=== PATIENT | male | born 1950 | race Caucasian/White ===

== ENCOUNTER 2016-11-18 17:19 | Observation (INO) | payer MEDICARE ==
--- NOTE | 2016-11-18 17:43 | Emergency Department Record ---
History of Present Illness - General Chief Complaint: Numbness Stated Complaint: FUNNY FEELING IN BOTH ARMS,NECK AND HEAD Time Seen by Provider: 11/18/16 17:34 Source: Patient, Family Mode of Arrival: Ambulatory Limitations: No limitations - History of Present Illness Initial Comments: 66 yo male presents after two episodes today. At 1pm he was at an antique shop and had a 15-20 episode when he felt a heavy sensation come over his arms, neck and back of the head. This was not painful. He was not weak, numb or tingling. He did not have syncope. No chest pain or sweating. He did not loose coordination. The episode quickly passed. Within 15 minutes her was back to feeling 100% normal. At 4pm driving his car the same episode occurred. No weakness, no pain, no speech or vision changes. No history of stroke. Onset/Timin -: Hour(s) Location: Left arm, Right arm History of same: No Place: Outdoors Severity: Moderate Quality: Intermittent Improves With: None Worsens With: None Context: Sudden onset, Other Treatments Prior to Arrival: None - [place] Coma Scale Eye Response: (4) Open spontaneously Motor Response: (6) Obeys commands Verbal Response: (5) Oriented Laura Total: 15 - Symptoms of Stroke Onset of Symptoms Date: 11/18/16 Onset of Symptoms Time: 12:00 - Related Data Allergies/Adverse Reactions: Allergies Allergy/AdvReac Type Severity Reaction Status Date / Time meperidine Allergy Unknown HIVES Verified 11/18/16 17:32 Travel Screening - Travel/Exposure Within Last 30 Days Have you traveled within the last 30 days?: No - Travel/Exposure Within Last Year Have you traveled outside the [place] in the last year?: No - Additonal Travel Details Have you been exposed to anyone with a communicable illness?: No - Travel Symptoms Symptom Screening: None Review of Systems Constitutional: Denies: Chills, Fever, Malaise, Night sweats, Weakness Eyes: Denies: Eye discharge, Eye pain, Photophobia, Vision change ENT: Denies: Congestion, Throat pain Respiratory: Denies: Cough, Dyspnea, Hemoptysis, Stridor, Wheezes Cardiovascular: Denies: Arrhythmia, Chest pain, Dyspnea on exertion, Edema, Palpitations, Syncope Endocrine: Denies: Fatigue, Polydipsia, Polyuria Gastrointestinal: Denies: Abdominal pain, Diarrhea, Nausea, Vomiting Genitourinary: Denies: Dysuria, Frequency, Hematuria, Incontinence, Urgency Musculoskeletal: Denies: Arthralgia, Back pain, Joint swelling, Myalgia, Neck pain Skin: Denies: Bruising, Change in color, Rash Neurological: Reports: Other ([place] heavy). Denies: Abnormal gait, Confusion, Headache, Numbness, Paresthesias, Seizure, Tingling, Tremors, Vertigo, Weakness Psychiatric: Denies: Anxiety Hematological/Lymphatic: Denies: Blood Clots, Easy bleeding, Easy bruising, Swollen glands Past Medical History - SOCIAL HISTORY Smoking Status: Never smoker Alcohol Use: None Drug Use: None - RESPIRATORY Hx Respiratory Disorders: No - CARDIOVASCULAR Hx Cardio Disorders: Yes Hx Hypertension: Yes Hx Irregular Heartbeat: Yes (on occasion) Comment:: enlarged heart - NEURO Hx Neuro Disorders: Yes Hx Dizziness: Yes - GI Hx GI Disorders: Yes Hx Hiatal Hernia: Yes - Hx Genitourinary Disorders: Yes Hx Prostate Problems: Yes - ENDOCRINE Hx Endocrine Disorders: No - MUSCULOSKELETAL Hx Musculoskeletal Disorders: No - PSYCH Hx Psych Problems: Yes Hx Depression: Yes - HEMATOLOGY/ONCOLOGY Hx Hematology/Oncology Disorders: Yes Hx Blood Transfusions: Yes (pt own blood) Hx Blood Transfusion Reaction: No Family Medical History Any Significant Family History?: Yes Hx Cancer: Father, Mother Physical Exam - General General Appearance: Alert, Oriented x3, Cooperative, No acute distress, Other ( Appears calm, relaxed, conversational) Limitations: No limitations - Head Head exam: Atraumatic, Normocephalic, Normal inspection - Eye Eye exam: Normal appearance, PERRL, EOMI. negative: Conjunctival injection, Nystagmus, Periorbital swelling - ENT ENT exam: Normal exam, Mucous membranes moist Ear exam: Normal external inspection Nasal Exam: Normal inspection Mouth exam: Normal external inspection - Neck Neck exam: Normal inspection, Full ROM. negative: Meningismus, Tenderness - Respiratory Respiratory exam: Normal lung sounds bilaterally. negative: Respiratory distress, Rhonchi, Stridor, Wheezes - Cardiovascular Cardiovascular Exam: Regular rate, Normal rhythm, Normal heart sounds Peripheral Pulses: 2+: Radial (R), Radial (L) - GI/Abdominal GI/Abdominal exam: Soft. negative: Tenderness - Rectal Rectal exam: Deferred - exam: Deferred - Extremities Extremities exam: Normal inspection, Full ROM, Normal capillary refill. negative: Pedal edema, Tenderness - Back Back exam: Reports: Normal inspection, Full ROM. Denies: CVA tenderness (R), CVA tenderness (L), Muscle spasm, Paraspinal tenderness, Rash noted, Tenderness , Vertebral tenderness - Neurological Neurological exam: Alert, CN II-XII intact, Normal gait, Oriented X3, Reflexes normal, Other (No PND, normal FTN, normal strength, symmetric). negative: Motor sensory deficit - Psychiatric Psychiatric exam: Normal affect, Normal mood - Skin Skin exam: Dry, Intact, Normal color, Warm Course Vital Signs 11/18/16 17:20 Temperature 99.2 F Pulse Rate 103 H Respiratory 16 Rate Blood Pressure 147/91 Pulse Ox 96 - Reevaluation(s) Reevaluation #1: 11/18/16 17:46 NIH 0 11/18/16 18:00 EKG NSR rate of 96, intervals normal, axis normal, ST no acute changes, early transition. no significant changes 11/08/13. 11/18/16 18:02 Reevaluation #2: orthostatics reviewed 11/18/16 18:27 The labs were reviewed No acute changes on the CBC or CMP The Troponin is normal 11/18/16 18:27 I CHARISSE Castaneda V the PAC for the [facility] He will be an OBS admit, serial enzymes, ekg's, carotid dopplers 11/18/16 19:20 Medical Decision Making - Lab Data Result diagrams: 11/18/16 17:47 11/18/16 17:47 Disposition Disposition: Admit Clinical Impression: Near syncope Disposition: Still a Patient at [facility] Decision to Admit: Admit from ER Decision to Admit Date: 11/18/16 Decision to Admit Time: 19:22 Condition: (2) Stable Forms: Patient Portal Access Time of Disposition: 19:22 Quality - Quality Measures Quality Measures: N/A - Blood Pressure Screening Does Patient Have Any of the Following: No Blood Pressure Classification: Hypertensive Reading Systolic Measurement: 147 Diastolic Measurement: 91 Screening for High Blood Pressure: < Pre-Hypertensive BP, F/U Documented > [ [id number]] Pre-Hypertensive Follow-up Interventions: Referral to alternative/primary care provider.
[2016-11-18 17:57] LABS: HEMATOCRIT 40.7 % (42.0-52.0); HEMOGLOBIN 13.4 gm/dl (14.0-18.0); MEAN CELL VOLUME 91.1 fl (81-97); MEAN CORPUSCULAR HGB CONC 32.9 g/dl (32-36); MEAN PLATELET VOLUME 9.3 fl (7.4-10.4); PLATELET COUNT 237 K/uL (130-400); RED BLOOD COUNT 4.47 M/uL (4.40-5.70); RED CELL DISTRIBUTION WIDTH 13.8 % (11.5-14.5); WHITE BLOOD COUNT W/O DIFF 6.1 K/uL (4.2-12.2)
[2016-11-18 17:59] LABS: MEAN CORPUSCULAR HEMOGLOBIN 29.9 pg (27-33)
[2016-11-18 18:17] LABS: ALB/GLOB RATIO 1.7 (1.1-1.8); ALBUMIN 4.3 g/dL (4.0-5.0); ALKALINE PHOSPHATASE 95 U/L (40-129); ALT/SGPT 21 U/L (<41); AST/SGOT 23 U/L (10.0-50.0); BLOOD UREA NITROGEN 49.9 mg/dL (17.4-49.2); CREATININE 1.2 mg/dL (0.7-1.2); EST GLOMERULAR FILTRATION RATE > 60 mL/min; GLUCOSE,RANDOM 116 mg/dL (74-109); TOTAL PROTEIN 6.9 g/dL (6.6-8.7)
[2016-11-18 18:18] LABS: TROPONIN I < 0.30 ng/mL (0.00-0.300)
[2016-11-18] MEDS: 0.9 % SODIUM CHLORIDE 1000ML 1,000 ML IV PRN (22:47)
--- NOTE | 2016-11-19 07:13 | CT SCAN REPORT ---
EXAM: CT OF THE BRAIN HISTORY: DIZZINESS. TECHNIQUE: CT of the brain without contrast was obtained. Comparison: None. FINDINGS: The globes are intact. Polyps of the maxillary sinuses. No displaced or depressed skull fracture. No intra or extraaxial hemorrhage. CT is limited for evaluation of acute infarct. No CT evidence for large or territorial acute infarct. No mass or midline shift. Mild diffuse atrophy. Minor small vessel ischemic change. IMPRESSION: MILD ATROPHY AND SMALL VESSEL ISCHEMIC CHANGE. NEGATIVE FOR ACUTE INTRACRANIAL ABNORMALITY. JOB NUMBER: [id number] [facility]
[2016-11-19] MEDS: BUPROPION HCL 150 MG TAB.SR.12H PO SCH (10:42)
[2016-11-19] MEDS: 0.9 % SODIUM CHLORIDE 1000ML 1,000 ML IV PRN (10:44)
--- NOTE | 2016-11-19 10:51 | US CAROTID DOPPLER REPORT ---
EXAM: BILATERAL CAROTID DOPPLER ULTRASOUND HISTORY: TRANSIENT WEAKNESS. EXTREMITY NUMBNESS. TECHNIQUE: Kiran scale, color Doppler and duplex Doppler evaluation of the cervical arteries was performed. Comparison: None. FINDINGS: Kiran scale images do not demonstrate focal atherosclerotic plaque within the cervical arteries. 3 Vessel Right Peak Systolic/ End Diastolic Velocities Left Peak Systolic/ End Diastolic Velocities Proximal Common Carotid Artery 95 cm/s/24 cm/s 79 cm/s/14 cm/s Mid Common Carotid Artery 88 cm/s/24 cm/s 56 cm/s/8 cm/s Distal Common Carotid Artery 58 cm/s/21 cm/s 76 cm/s/19 cm/s Proximal Internal Carotid Artery 57 cm/s/10 cm/s 41 cm/s/18 cm/s Mid Internal Carotid Artery 40 cm/s/12 cm/s 52 cm/s/16 cm/s Distal Internal Carotid Artery 56 cm/s/17 cm/s 58 cm/s/27 cm/s Carotid Bulb 39 cm/s/10 cm/s 49 cm/s/8 cm/s Proximal External Carotid Artery 75 cm/s/23 cm/s 64 cm/s/14 cm/s d d d Peak Systolic Velocity Peak Systolic Velocity Vertebral Artery 45 cm/s 49 cm/s Antegrade flow is demonstrated in each vertebral artery. The ICA/CCA ratio on the right is 0.7 while on the left it is 1.0. IMPRESSION: 1. NO EVIDENCE OF PLAQUE WITHIN THE VISUALIZED CERVICAL CAROTID ARTERIES. 2. NO DOPPLER EVIDENCE OF CLINICALLY SIGNIFICANT STENOSIS. JOB NUMBER: [id number] AND [id number] [facility]
--- NOTE | 2016-11-19 12:00 | History & Physical ---
History of Present Illness - Date of Service Date of Service for History & Physical: 11/19/16 - History of Present Illness Admitting Diagnosis: Near syncope, transient weakness globally History of Present Illness: Mr. Cosme is a 66 y/o male who presents after having episodes of generalized feeling of warmth in both arms accompanied with neck pain and headache. The patient was out antique shopping with his girlfriend when his symptoms began and cannot recall any precipitating events that would have brought on his symptoms. While driving home the patient again had another episode and had to pull to the side of the road until symptoms resolved. He denies, fever/chills, vomiting, chest pain, sweating, loss of vision, dizziness, numbness, slurring of speech, motor weakness or loss of consciousness. The patient's girlfriend denies and seizure like activity or symptoms suggestive of stroke. He reports episodes of palpitations some years ago at which time he had his medication adjusted by his PCP but says that he has no cardiac conditions or recent changes in medication dosing. He did however note that he most recently started using Melatonin for sleep disturbance but has not noticed any specific side-effects. On arrival to the ED the patient had a CT head w/o contrast which was not suggestive of any acute intracranial process. ECG showed normal sinus rhythm and troponins were negative with no indication of acute coronary syndrome. Addendum: at approximately 8:50 this am the patient was noted to have another episode of the aforementioned symptoms with spontaneous resolution and no changes on tele monitor. Travel Screening - Travel/Exposure Within Last 30 Days Have you traveled within the last 30 days?: No - Travel/Exposure Within Last Year Have you traveled outside the [place] in the last year?: No - Additonal Travel Details Have you been exposed to anyone with a communicable illness?: No - Travel Symptoms Symptom Screening: None Review of Systems Constitutional: Reports: Other (generalized warmth and nausea ). Denies: Chills , Fever, Malaise, Night sweats, Weakness Eyes: Denies: Eye discharge, Eye pain, Photophobia, Vision change ENT: Denies: Congestion, Throat pain Respiratory: Denies: Cough, Dyspnea, Hemoptysis, Stridor, Wheezes Cardiovascular: Denies: Arrhythmia, Chest pain, Dyspnea on exertion, Edema, Palpitations, Syncope Endocrine: Denies: Fatigue, Polydipsia, Polyuria Gastrointestinal: Denies: Abdominal pain, Diarrhea, Nausea, Vomiting Genitourinary: Denies: Dysuria, Frequency, Hematuria, Incontinence, Urgency Musculoskeletal: Denies: Arthralgia, Back pain, Joint swelling, Myalgia, Neck pain Skin: Denies: Bruising, Change in color, Rash Neurological: Reports: Other ([place] heavy). Denies: Abnormal gait, Confusion, Headache, Numbness, Paresthesias, Seizure, Tingling, Tremors, Vertigo, Weakness Psychiatric: Denies: Anxiety Hematological/Lymphatic: Denies: Blood Clots, Easy bleeding, Easy bruising, Swollen glands Past Medical History - SOCIAL HISTORY Smoking Status: Never smoker Alcohol Use: None Drug Use: None - RESPIRATORY Hx Respiratory Disorders: No - CARDIOVASCULAR Hx Cardio Disorders: Yes Hx Abnormal EKG: No Hx Hypertension: Yes Hx Irregular Heartbeat: Yes (on occasion and takes verapamil ) Comment:: enlarged heart - NEURO Hx Neuro Disorders: No Hx Dizziness: Yes Hx of Migraines: Yes Hx Syncope: No Hx TIA: No - GI Hx GI Disorders: Yes Hx Hiatal Hernia: Yes - Hx Genitourinary Disorders: Yes Hx Prostate Problems: Yes - ENDOCRINE Hx Endocrine Disorders: No - MUSCULOSKELETAL Hx Musculoskeletal Disorders: No Hx Arthritis: Yes (bilateral total knee replacements) - PSYCH Hx Psych Problems: Yes Hx Depression: Yes (on Wellbutrin and Paroxetine) - HEMATOLOGY/ONCOLOGY Hx Hematology/Oncology Disorders: Yes Hx Blood Transfusions: Yes (pt own blood) Hx Blood Transfusion Reaction: No Family Medical History Any Significant Family History?: No H&P Meds/Allergies - Allergies Allergies: Allergies Allergy/AdvReac Type Severity Reaction Status Date / Time meperidine Allergy Unknown HIVES Verified 11/18/16 17:32 - Home Medications Home Medications Medication Instructions Recorded Confirmed Last Taken Aspirin [Aspirin EC] 81 mg PO QHS 11/19/16 11/19/16 Unknown - Active Medications Active Medications: Current Medications Aspirin (Ecotrin (Ec)) 81 mg PO QHS [facility] Bupropion HCl (Wellbutrin Sr) 300 mg PO DAILY [facility] Last Admin: 11/19/16 10:42 Dose: 300 mg Sodium Chloride () 1,000 mls @ 100 mls/hr IV .Q10H PRN PRN Reason: LARGE VOLUME IV Last Admin: 11/19/16 10:44 Dose: 100 mls/hr Physical Exam - Vital Signs Vital Signs: Vital Signs - Last 24 Hrs Temp Pulse Resp BP Pulse Ox 11/19/16 08:45 99.1 F 94 H 18 144/89 97 11/19/16 08:22 18 11/19/16 05:00 98.6 F 73 18 144/91 97 11/18/16 22:40 98.2 F 94 H 20 160/85 97 11/18/16 22:19 16 - General General Appearance: Alert, Oriented x3, Cooperative, No acute distress, Other ( Appears calm, relaxed, conversational) Limitations: No limitations - Head Head exam: Atraumatic, Normocephalic, Normal inspection - Eye Eye exam: Normal appearance, PERRL, EOMI. negative: Conjunctival injection, Nystagmus, Periorbital swelling - ENT ENT exam: Normal exam, Mucous membranes moist Ear exam: Normal external inspection Nasal Exam: Normal inspection Mouth exam: Normal external inspection - Neck Neck exam: Normal inspection, Full ROM. negative: Meningismus, Tenderness - Respiratory Respiratory exam: Normal lung sounds bilaterally. negative: Respiratory distress, Rhonchi, Stridor, Wheezes - Cardiovascular Cardiovascular Exam: Regular rate, Normal rhythm, Normal heart sounds Peripheral Pulses: 2+: Radial (R), Radial (L) - GI/Abdominal GI/Abdominal exam: Soft. negative: Tenderness - Rectal Rectal exam: Deferred - exam: Deferred - Extremities Extremities exam: Normal inspection, Full ROM, Normal capillary refill. negative: Pedal edema, Tenderness - Back Back exam: Reports: Normal inspection, Full ROM. Denies: CVA tenderness (R), CVA tenderness (L), Muscle spasm, Paraspinal tenderness, Rash noted, Tenderness , Vertebral tenderness - Neurological Neurological exam: Alert, CN II-XII intact, Normal gait, Oriented X3, Reflexes normal, Other (No PND, normal FTN, normal strength, symmetric). negative: Motor sensory deficit - Psychiatric Psychiatric exam: Normal affect, Normal mood - Skin Skin exam: Dry, Intact, Normal color, Warm Results - Labs Result Diagrams: 11/18/16 17:47 11/18/16 17:47 Labs Last 24 Hours: Laboratory Results - last 24 hr 11/18/16 11/19/16 23:20 06:45 Troponin I < 0.01 < 0.30 VTE H&P Assessment - Risk for VTE Risk for VTE: No Risk Level: Very Low Risk Assessment Date: 11/19/16 Risk Assessment Time: 13:43 VTE Orders Placed or Will Be Placed: No VTE Reason for No Prophylaxis: Not Indicated Plan - Detailed Diagnosis and Plan (1) Near syncope Plan: - NIH 0 since admission. Possible TIA - workup thus far is unrevealing of any acute cardiac or neurological pathology. CT head w/o contrast is negative for any acute intra-cranial abnormalities and carotid duplex negative for obstruction. ABCD2 score 1, low risk of stroke. - continue telemetry monitoring, cholesterol panel and 2D echo to complete TIA/ stroke workup. - hold BP medications, no anticoagulation indicated for another 24 hours. Cont antiplatelet therapy with ASA 81mg and statin 40mg PO. Current Visit: Yes Status: Acute Base Code: R55 - SYNCOPE AND COLLAPSE (2) Hypertension Plan: - BP on admission 160/85,---> 144/89 today - on Verapamil 180 mg BID, Valasartan/HCTZ - continue holding BP medications for now. Will resume as appropriate. Current Visit: Yes Status: Acute Base Code: I10 - ESSENTIAL (PRIMARY) HYPERTENSION (3) Depression Plan: - patient has a diagnosis of generalized depression and is on Buproprion and Paroxetine. He has described recent stressors with the of a close friend. We have resumed his medications and will consult behavioral health for a discussion if the patient is agreeable. The patient may benefit from therapy and outpatient support upon discharge. Current Visit: Yes Status: Chronic Base Code: F32.9 - MAJOR DEPRESSIVE DISORDER, SINGLE EPISODE, UNSPECIFIED (4) Hypercholesteremia Plan: ordering cholesterol panel and continuing Simvastatin 40mg QHS. Current Visit: Yes Status: Acute Base Code: E78.00 - PURE HYPERCHOLESTEROLEMIA, UNSPECIFIED (5) Psoriasis Plan: stable - on methotrexate 2.5mg QD, folic acid and Vit D supplementation. Current Visit: Yes Status: Acute Base Code: L40.9 - PSORIASIS, UNSPECIFIED (6) Erectile dysfunction Plan: - currently taking Cialis. Current Visit: Yes Status: Acute Base Code: N52.9 - MALE ERECTILE DYSFUNCTION, UNSPECIFIED (7) Full code status Plan: FULL CODE - will discuss resuscitation status and decision making with patient this afternoon. Current Visit: Yes Status: Acute Base Code: Z78.9 - OTHER SPECIFIED HEALTH STATUS - Disposition The patient is stable but we will complete TIA/stroke workup today. Likely d/c tomorrow if workup is negative. to evaluate this afternoon.
[2016-11-19] MEDS ORDERED: ASPIRIN 81 MG TABEC PO SCH (22:00)
[2016-11-20] MEDS: BUPROPION HCL 150 MG TAB.SR.12H PO SCH (09:10)
--- NOTE | 2016-11-20 09:31 | Discharge Summary ---
Providers Discharge Summary Date: 11/20/16 Date of admission: 11/18/16 21:45 Attending physician: ROBERTO ZAVALA Primary care physician: ARNAV MICHEL D.O. Physical Exam - Vital Signs Vital Signs: Vital Signs - Last 24 Hrs Temp Pulse Resp BP Pulse Ox 11/20/16 08:33 16 11/20/16 08:00 98.8 F 74 16 140/90 11/19/16 23:03 98.4 F 67 16 144/94 97 11/19/16 21:00 65 16 11/19/16 16:00 98.6 F 85 18 147/90 97 - General General Appearance: Alert, Oriented x3, Cooperative, No acute distress, Other ( Appears calm, relaxed, conversational) Limitations: No limitations - Head Head exam: Atraumatic, Normocephalic, Normal inspection - Eye Eye exam: Normal appearance, PERRL, EOMI. negative: Conjunctival injection, Nystagmus, Periorbital swelling - ENT ENT exam: Normal exam, Mucous membranes moist Ear exam: Normal external inspection Nasal Exam: Normal inspection Mouth exam: Normal external inspection - Neck Neck exam: Normal inspection, Full ROM. negative: Meningismus, Tenderness - Respiratory Respiratory exam: Normal lung sounds bilaterally. negative: Respiratory distress, Rhonchi, Stridor, Wheezes - Cardiovascular Cardiovascular Exam: Regular rate, Normal rhythm, Normal heart sounds Peripheral Pulses: 2+: Radial (R), Radial (L) - GI/Abdominal GI/Abdominal exam: Soft. negative: Tenderness - Rectal Rectal exam: Deferred - exam: Deferred - Extremities Extremities exam: Normal inspection, Full ROM, Normal capillary refill. negative: Pedal edema, Tenderness - Back Back exam: Reports: Normal inspection, Full ROM. Denies: CVA tenderness (R), CVA tenderness (L), Muscle spasm, Paraspinal tenderness, Rash noted, Tenderness , Vertebral tenderness - Neurological Neurological exam: Alert, CN II-XII intact, Normal gait, Oriented X3, Reflexes normal, Other (No PND, normal FTN, normal strength, symmetric). negative: Motor sensory deficit - Psychiatric Psychiatric exam: Normal affect, Normal mood - Skin Skin exam: Dry, Intact, Normal color, Warm Hospitalization - Hospitalization Admission Diagnosis: Near syncope, transient weakness globally - Problem List/Discharge Diagnosis (1) Near syncope Plan: - NIH 0 since admission. Possible TIA - workup thus far is unrevealing of any acute cardiac or neurological pathology. CT head w/o contrast is negative for any acute intra-cranial abnormalities and carotid duplex negative for obstruction. ABCD2 score 1, low risk of stroke. - continue telemetry monitoring, cholesterol panel and 2D echo to complete TIA/ stroke workup. - hold BP medications, no anticoagulation indicated for another 24 hours. Cont antiplatelet therapy with ASA 81mg and statin 40mg PO. Status: Acute Base Code: R55 - SYNCOPE AND COLLAPSE (2) Hypertension Plan: - BP on admission 160/85,---> 144/89 today - on Verapamil 180 mg BID, Valasartan/HCTZ - continue holding BP medications for now. Will resume as appropriate. Status: Acute Base Code: I10 - ESSENTIAL (PRIMARY) HYPERTENSION (3) Depression Plan: - patient has a diagnosis of generalized depression and is on Buproprion and Paroxetine. He has described recent stressors with the of a close friend. We have resumed his medications and will consult behavioral health for a discussion if the patient is agreeable. The patient may benefit from therapy and outpatient support upon discharge. Status: Chronic Base Code: F32.9 - MAJOR DEPRESSIVE DISORDER, SINGLE EPISODE, UNSPECIFIED (4) Hypercholesteremia Plan: ordering cholesterol panel and continuing Simvastatin 40mg QHS. Status: Acute Base Code: E78.00 - PURE HYPERCHOLESTEROLEMIA, UNSPECIFIED (5) Psoriasis Plan: stable - on methotrexate 2.5mg QD, folic acid and Vit D supplementation. Status: Acute Base Code: L40.9 - PSORIASIS, UNSPECIFIED (6) Erectile dysfunction Plan: - currently taking Cialis. Status: Acute Base Code: N52.9 - MALE ERECTILE DYSFUNCTION, UNSPECIFIED (7) Full code status Status: Acute Base Code: Z78.9 - OTHER SPECIFIED HEALTH STATUS - Hospitalization Course Disposition: Home, Self-Care Hospital Course: 66 y/o male who presented with sensation of generalized warmth and vague symptoms in the upper extremities bilaterally. He did not have any motor or sensory deficits on admission and CT head w/o contrast was not suggestive of any acute cerebral infarct. Other diagnostic studies inclusive of bilateral carotid US and labs did not reveal any abnormalities. No telemetry findings of arrhythmia and ECG showed normal sinus rhythm. He was started on aspirin 81mg, continuous tele monitor and Q12H neurochecks. All antihypertensives were held during admission and the patient remained normotensive. The patient remained stable throughout admission and considering the patient's low ABCD2 score he was discharged home with instruction to return on Thursday for outpatient 2D cardiac echo. He is to follow up with his PCP on Thursday for further review of his medications and he is advised to discontinue any herbal supplements and Melatonin as these may have some effect on his prescribed medications. The patient expresses and understanding of his hospital course and plans upon discharge. Procedures: Imaging and X-Rays 11/19/16 08:00 ARTERIAL DOPPLER CAROTID EDUARDO [US] Stat Cardiology Procedures 11/19/16 14:21 Echocardiogram 2D - Limited ONCE Abnormal Labs: Abnormal Lab Results 11/19/16 Range/Units 06:45 HDL Cholesterol 32 L (40-60) mg/dL Condition at Discharge: (2) Stable Discharge Diagnosis: Pre-syncope VTE Discharge VTE Reason For No Overlap Therapy: Not Indicated Stroke Discharge Plan - Antithrombotic Therapy Reason for Not Ordering Antithrombotic at DC: Not Indicated - Anticoagulation Therapy Reason for Not Ordering Anticoagulation at DC: Not Indicated Discharge Medications - Discharge Medications Home Medications: Ambulatory Orders Methotrexate Sodium [Methotrexate] 17.5 mg PO FR 11/08/13 [Last Taken 1 Day Ago ~11/17/16] Simvastatin 40 mg PO QHS 11/08/13 [Last Taken 1 Day Ago ~11/17/16] Verapamil HCl [Verapamil ER] 180 mg PO BID 11/08/13 [Last Taken 1 Day Ago ~11/17] Valsartan/Hydrochlorothiazide [Diovan Hct 80-12.5 mg Tablet] 1 each PO QHS 02/01 [Last Taken 1 Day Ago ~11/17/16] Bupropion HCl [Bupropion Xl] 300 mg PO DAILY 10/06/14 [Last Taken 1 Day Ago ~01/23] Cyclobenzaprine HCl [Flexeril] 10 mg PO QHS PRN 10/12/15 [Last Taken 1 Day Ago ~ 11/17/16] Hydrocodone/Acetaminophen [Hydrocodon-Acetaminoph 7.5-325] 1 each PO Q6H PRN 07/22 [Last Taken 1 Day Ago ~11/17/16] Aspirin [Aspirin EC] 81 mg PO QHS 11/19/16 [Last Taken Unknown] Discharge Plan - Discharge Instructions Activity at Discharge: Resume Usual Activities As Tolerated Diet at Discharge: Regular Diet Instructions: Near Syncope (DC) Additional Instructions: 2 Activity: As tolerated 2 Diet: Regular 2 2 Follow Up: An echocardiogram is scheduled on 11/21/16, please arrive at 10:30am to [facility] Dr Michel appt is 11/24/16 at 10:30am 2 2 Additional: Return to the closest emergency department with any new or worsening symptoms. Resume home medications as directed. Quality Measures - Quality Measures Quality Measures: Advance Directives, Documentation of Current Medications in Medical Record, Elder Maltreatment Screen and Follow-Up Plan, Screening for High Blood Pressure and F/U Documented - Current Medications Quality Measure: Measure #130: Documentation of Current Medications Documentation of Current Medications: <Current Medications Documented/Reviewed> [G8427] - Blood Pressure Screening Quality Measure: Screening for High Blood Pressure and Follow-Up Documented Does Patient Have Any of the Following: Active Dx of HTN Blood Pressure Classification: Hypertensive Reading Systolic Measurement: 147 Diastolic Measurement: 91 Screening for High Blood Pressure: Patient Exclusion, Hx of HTN [G9744] - Advance Directives Quality Measure: Measure #47: Care Plan Advance Directives Established: No Advance Directives Information Provided To Patient: Already Provided Advance Directives on File: No Living Will: No Power of Kennel Aide: No Advance Care Planning: Not Discussed or Documented [[id number]] - Elder Abuse Suspicion Index Screening: Elder Abuse Suspicion Index Screening Screening Result: Negative result EASI Reference Information: Shaan ECHEVERRIA, Yojana C, Thuy D, Dann Roy.Development and validation of a tool to assist physicians identification of elder abuse: The Elder Abuse Suspicion Index (EASI ). Journal of Elder Abuse and Neglect, 2008; 20 (3): 276-300. - Elder Maltreatment Screen Quality Measures: Elder Maltreatment Screen and Follow-Up Plan Elder Maltreatment Screen: <Negative, No Follow-Up Plan Required> [G8734]
== END 2016-11-20 10:16 | disposition home or self-care (01) ==
LOC: ER 17:19 → MEDSURG 21:45
PROVIDERS: ADMIT Family Medicine; ATTEND Family Medicine
DX: R55 Syncope and collapse (principal); R53.1 Weakness; F32.9 Major depressive disorder, single episode, unspecified; I10 Essential (primary) hypertension; E78.00 Pure hypercholesterolemia, unspecified; L40.9 Psoriasis, unspecified; N52.9 Male erectile dysfunction, unspecified; Z78.9 Other specified health status
CPT/HCPCS: 99285 ×2; 83735; 84484 ×2; 80053; 80061; 85027; 93880; 70450; 93005 ×3; 93010 ×2; G0378 ×3; J3490 ×2; 99217; 99220

== ENCOUNTER 2017-08-27 17:20 | Emergency (ER) | payer MEDICARE ==
[2017-08-27] MEDS ORDERED: RIVAROXABAN 15 MG TABLET PO ONE (18:30)
--- NOTE | 2017-08-27 18:30 | Emergency Department Record ---
History of Present Illness - General Chief complaint: Extremity Problem Stated complaint: LT ARM BLOOD CLOT Time Seen by Provider: 08/27/17 17:40 Source: Patient Mode of Arrival: Ambulatory Limitations: No limitations - History of Present Illness Initial comments: pt sent to ED from us after it was discovered he had a dvt of his lue. pt has no cp and no sob MD Complaint: Extremity pain, Extremity swelling Onset/Timin -: Days(s) Location: Left, Arm History of Same: No Quality: Aching Associated Symptoms: Denies other symptoms - Related Data Previous Rx's Medication Instructions Recorded Rivaroxaban [Xarelto] 15 mg PO BID #20 tablet 08/27/17 Allergies Allergy/AdvReac Type Severity Reaction Status Date / Time meperidine Allergy Unknown HIVES Verified 08/27/17 17:33 Travel Screening - Travel/Exposure Within Last 30 Days Have you traveled within the last 30 days?: No - Travel/Exposure Within Last Year Have you traveled outside the [place] in the last year?: No - Additonal Travel Details Have you been exposed to anyone with a communicable illness?: No - Travel Symptoms Symptom Screening: None Review of Systems Reviewed: No additional complaints except as noted below Constitutional: Reports: As per HPI. Denies: Chills, Fever, Malaise, Night sweats, Weakness, Weight change Eyes: Reports: As per HPI. Denies: Eye discharge, Eye pain, Photophobia, Vision change ENT: Reports: As per HPI. Denies: Congestion, Dental pain, Ear pain, Epistaxis , Hearing loss, Throat pain Respiratory: Reports: As per HPI. Denies: Cough, Dyspnea, Hemoptysis, Stridor, Wheezes Cardiovascular: Reports: As per HPI. Denies: Arrhythmia, Chest pain, Dyspnea on exertion, Edema, Murmurs, Orthopnea, Palpitations, Paroxysmal nocturnal dyspnea, Rheumatic Fever, Syncope Endocrine: Reports: As per HPI. Denies: Fatigue, Heat or cold intolerance, Polydipsia, Polyuria Gastrointestinal: Reports: As per HPI. Denies: Abdominal pain, Constipation, Diarrhea, Hematemesis, Hematochezia, Melena, Nausea, Vomiting Genitourinary: Reports: As per HPI. Denies: Dysuria, Frequency, Hematuria, Incontinence, Retention, Testicular pain, Testicular mass, Urgency Musculoskeletal: Reports: As per HPI. Denies: Arthralgia, Back pain, Gout, Joint swelling, Myalgia, Neck pain Skin: Reports: As per HPI. Denies: Bruising, Change in color, Change in hair/ nails, Lesions, Pruritus, Rash Neurological: Reports: As per HPI. Denies: Abnormal gait, Confusion, Headache, Numbness, Paresthesias, Seizure, Tingling, Tremors, Vertigo, Weakness Psychiatric: Reports: As per HPI. Denies: Anxiety, Auditory hallucinations, Depression, Homicidal thoughts, Suicidal thoughts, Visual hallucinations Hematological/Lymphatic: Reports: As per HPI. Denies: Anemia, Blood Clots, Easy bleeding, Easy bruising, Swollen glands Past Medical History - SOCIAL HISTORY Smoking Status: Never smoker Alcohol Use: None Drug Use: None - RESPIRATORY Hx Respiratory Disorders: No - CARDIOVASCULAR Hx Cardio Disorders: Yes Hx Abnormal EKG: No Hx Hypertension: Yes Hx Irregular Heartbeat: Yes (on occasion and takes verapamil ) Comment:: enlarged heart - NEURO Hx Neuro Disorders: No Hx Dizziness: Yes Hx of Migraines: Yes Hx TIA: No - GI Hx GI Disorders: Yes Hx Hiatal Hernia: Yes - Hx Genitourinary Disorders: Yes Hx Prostate Problems: Yes - ENDOCRINE Hx Endocrine Disorders: No - MUSCULOSKELETAL Hx Musculoskeletal Disorders: No Hx Arthritis: Yes (bilateral total knee replacements) - PSYCH Hx Psych Problems: Yes Hx Depression: Yes (on Wellbutrin and Paroxetine) - HEMATOLOGY/ONCOLOGY Hx Hematology/Oncology Disorders: Yes Hx Blood Transfusions: Yes (pt own blood) Hx Blood Transfusion Reaction: No Family Medical History Any Significant Family History?: Yes Hx Cancer: Father, Mother Physical Exam - General General Appearance: Alert, Oriented x3, Cooperative, Mild distress - Head Head exam: Normal inspection - Eye Eye exam: Normal appearance, PERRL, EOMI Pupils: Normal accommodation - ENT ENT exam: Normal exam, Mucous membranes moist, Normal external ear exam, Normal orophraynx, TM's normal bilaterally Ear exam: Normal external inspection. negative: External canal tenderness Nasal Exam: Normal inspection. negative: Discharge, Sinus tenderness Mouth exam: Normal external inspection, Tongue normal Teeth exam: Normal inspection. negative: Dental caries Throat exam: Normal inspection. negative: Tonsillar erythema, Tonsillar exudate - Neck Neck exam: Normal inspection, Full ROM. negative: Tenderness - Respiratory Respiratory exam: Normal lung sounds bilaterally. negative: Respiratory distress - Cardiovascular Cardiovascular Exam: Regular rate, Normal rhythm, Normal heart sounds - GI/Abdominal GI/Abdominal exam: Soft, Normal bowel sounds. negative: Tenderness - Rectal Rectal exam: Deferred - exam: Deferred - Extremities Extremities exam: Normal inspection, Full ROM, Normal capillary refill. negative: Tenderness - Back Back exam: Reports: Normal inspection, Full ROM. Denies: Muscle spasm, Rash noted, Tenderness - Neurological Neurological exam: Alert, CN II-XII intact, Normal gait, Oriented X3 - Psychiatric Psychiatric exam: Normal affect, Normal mood - Skin Skin exam: Dry, Intact, Normal color, Warm Course Vital Signs 08/27/17 17:25 Temperature 97.9 F Pulse Rate 69 Respiratory 20 Rate Blood Pressure 149/96 Pulse Ox 98 - Reevaluation(s) Reevaluation #1: 08/27/17 18:36 d/w dr schmitz Disposition Disposition: Discharge Clinical Impression: DVT (deep venous thrombosis) Qualifiers: DVT location: upper extremity Affected thrombotic vein of extremity: other upper extremity vein Chronicity: acute Laterality: left Qualified Code(s): I82.622 - Acute embolism and thrombosis of deep veins of left upper extremity Disposition: Home, Self-Care Condition: (1) Good Instructions: Deep Vein Thrombosis Prevention (ED), Rivaroxaban (By mouth) Additional Instructions: follow up with family doctor. return sooner if worse. go to nearest emergency department if you have chest pain, shortness of breath or unusual bleeding Prescriptions: Rivaroxaban [Xarelto] 15 mg PO BID #20 tablet Quality - Quality Measures Quality Measures: N/A - Blood Pressure Screening Does Patient Have Any of the Following: No Blood Pressure Classification: Hypertensive Reading Systolic Measurement: 149 Diastolic Measurement: 96 Screening for High Blood Pressure: < First Hypertensive BP, F/U Documented > [ G8950] First Hypertensive Follow-up Interventions: Follow-up with rescreen GT 1 day and LT 4 weeks.
== END 2017-08-27 19:05 | disposition home or self-care (01) ==
LOC: ER 17:20
DX: I82.622 Acute embolism and thrombosis of deep veins of left upper extremity (principal); I10 Essential (primary) hypertension
CPT/HCPCS: 99283

== ENCOUNTER 2017-10-19 15:20 | Emergency (ER) | payer MEDICARE ==
--- NOTE | 2017-10-19 15:41 | Emergency Department Record ---
History of Present Illness - General Chief complaint: Extremity Problem Stated complaint: KNOT ON RASHID Time Seen by Provider: 10/19/17 15:29 Mode of Arrival: Ambulatory - History of Present Illness Initial comments: accidental injury at home to left rashid. On Xarelto for DVT left arm. Onset/Timin -: Minutes(s) Location: Left, Lower Leg Quality: Aching - Related Data Home Medications Medication Instructions Recorded Confirmed Last Taken Paroxetine HCl [Paxil] 10 mg PO DAILY 10/19/17 10/19/17 1 Day Ago ~10/18/17 Previous Rx's Medication Instructions Recorded Rivaroxaban [Xarelto] 15 mg PO BID #20 tablet 08/27/17 Allergies Allergy/AdvReac Type Severity Reaction Status Date / Time meperidine Allergy Unknown HIVES Verified 10/19/17 15:34 Travel Screening - Travel/Exposure Within Last 30 Days Have you traveled within the last 30 days?: No - Travel/Exposure Within Last Year Have you traveled outside the [place] in the last year?: No - Additonal Travel Details Have you been exposed to anyone with a communicable illness?: No - Travel Symptoms Symptom Screening: None Review of Systems Constitutional: Denies: Chills, Fever Eyes: Denies: Vision change ENT: Denies: Ear pain Respiratory: Denies: Cough Cardiovascular: Denies: Arrhythmia, Chest pain Endocrine: Denies: Fatigue Gastrointestinal: Denies: Abdominal pain Skin: Reports: As per HPI Neurological: Denies: Confusion, Headache, Tingling Psychiatric: Denies: Anxiety Hematological/Lymphatic: Reports: Blood Clots. Denies: Anemia Past Medical History - SOCIAL HISTORY Smoking Status: Never smoker Alcohol Use: None Drug Use: None - RESPIRATORY Hx Respiratory Disorders: No - CARDIOVASCULAR Hx Cardio Disorders: Yes Hx Abnormal EKG: No Hx Deep Vein Thrombosis: Yes (left upper ext.) Hx Hypertension: Yes Hx Irregular Heartbeat: Yes (on occasion and takes verapamil ) Comment:: enlarged heart - NEURO Hx Neuro Disorders: No Hx Dizziness: Yes Hx of Migraines: Yes Hx TIA: No - GI Hx GI Disorders: Yes Hx Hiatal Hernia: Yes - Hx Genitourinary Disorders: Yes Hx Prostate Problems: Yes - ENDOCRINE Hx Endocrine Disorders: No - MUSCULOSKELETAL Hx Musculoskeletal Disorders: No Hx Arthritis: Yes (bilateral total knee replacements) - PSYCH Hx Psych Problems: Yes Hx Depression: Yes (on Wellbutrin and Paroxetine) - HEMATOLOGY/ONCOLOGY Hx Hematology/Oncology Disorders: Yes Hx Blood Transfusions: Yes (pt own blood) Hx Blood Transfusion Reaction: No Family Medical History Any Significant Family History?: Yes Hx Cancer: Father, Mother Physical Exam - General General Appearance: Alert, Oriented x3, Cooperative - Head Head exam: Atraumatic - Eye Eye exam: Normal appearance, PERRL, EOMI - ENT ENT exam: Mucous membranes moist, Normal external ear exam - Neck Neck exam: Normal inspection - Respiratory Respiratory exam: Normal lung sounds bilaterally. negative: Rhonchi - Cardiovascular Cardiovascular Exam: Regular rate, Normal rhythm Peripheral Pulses: 2+: Dorsalis Pedis (R), Dorsalis Pedis (L) - GI/Abdominal GI/Abdominal exam: Soft, Normal bowel sounds. 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 negative: Calf tenderness - Neurological Neurological exam: Alert, Normal gait, Oriented X3 - Psychiatric Psychiatric exam: Normal affect, Normal mood - Skin Skin exam: Abrasion, Pallor Course Vital Signs 10/19/17 15:23 Temperature 98.2 F Pulse Rate 82 Respiratory 17 Rate Blood Pressure 120/85 Pulse Ox 97 - Reevaluation(s) Reevaluation #1: 10/19/17 15:44 Seen for concern of blood thinner. No active bleeding. Disposition Disposition: Discharge Clinical Impression: Abrasion of skin Disposition: Home, Self-Care Condition: (1) Good Instructions: Abrasion (ED) Additional Instructions: ice Quality - Quality Measures Quality Measures: N/A - Blood Pressure Screening Does Patient Have Any of the Following: No Blood Pressure Classification: Pre-Hypertensive BP Reading Systolic Measurement: 120 Diastolic Measurement: 85 Screening for High Blood Pressure: < Pre-Hypertensive BP, F/U Documented > [ G8950] Pre-Hypertensive Follow-up Interventions: Follow-up with rescreen every year.
== END 2017-10-19 16:01 | disposition home or self-care (01) ==
LOC: ER 15:20
DX: S80.812A Abrasion, left lower leg, initial encounter (principal); W22.8XXA Striking against or struck by other objects, initial encounter; Y92.009 Unspecified place in unspecified non-institutional (private) residence as the place of occurrence of the external cause; Z86.718 Personal history of other venous thrombosis and embolism; I10 Essential (primary) hypertension; Z79.01 Long term (current) use of anticoagulants
CPT/HCPCS: 99282

== ENCOUNTER 2017-12-29 14:31 | Emergency (ER) | payer MEDICARE ==
[2017-12-29] MEDS ORDERED: LIDOCAINE (XYLOCAINE) 1% MPF 10MG/ML 5ML VIAL ONE (14:56)
--- NOTE | 2017-12-29 15:26 | Emergency Department Record ---
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 on the 3rd and 4th finger and deeper on the 5th finger Onset/Timin -: Hour(s) Extremity Location: Left: Hand Place: Home Context: Accidental Treatments Prior to Arrival: Bandage - Laura Coma Scale Eye Response: (4) Open spontaneously Motor Response: (6) Obeys commands Verbal Response: (5) Oriented Laura Total: 15 - Related Data Hx Tetanus Toxoid Vaccination: Yes Year of Tetanus Vaccination: 2017 Patient Tetanus UTD (within 5 yrs): Yes Home Medications Medication Instructions Recorded Confirmed Last Taken Tamsulosin HCl [Flomax] 0.4 mg PO DAILY 12/29/17 12/29/17 12/28/17 Allergies Allergy/AdvReac Type Severity Reaction Status Date / Time meperidine Allergy Unknown HIVES Verified 12/29/17 14:50 Travel Screening - Travel/Exposure Within Last 30 Days Have you traveled within the last 30 days?: No - Travel/Exposure Within Last Year Have you traveled outside the [place] in the last year?: No - Additonal Travel Details Have you been exposed to anyone with a communicable illness?: No - Travel Symptoms Symptom Screening: None Review of Systems Reviewed: No additional complaints except as noted below Constitutional: Reports: As per HPI. Denies: Chills, Fever, Malaise, Night sweats, Weakness, Weight change Eyes: Reports: As per HPI. Denies: Eye discharge, Eye pain, Photophobia, Vision change ENT: Reports: As per HPI. Denies: Congestion, Dental pain, Ear pain, Epistaxis , Hearing loss, Throat pain Respiratory: Reports: As per HPI. Denies: Cough, Dyspnea, Hemoptysis, Stridor, Wheezes Cardiovascular: Reports: As per HPI. Denies: Arrhythmia, Chest pain, Dyspnea on exertion, Edema, Murmurs, Orthopnea, Palpitations, Paroxysmal nocturnal dyspnea, Rheumatic Fever, Syncope Endocrine: Reports: As per HPI. Denies: Fatigue, Heat or cold intolerance, Polydipsia, Polyuria Gastrointestinal: Reports: As per HPI. Denies: Abdominal pain, Constipation, Diarrhea, Hematemesis, Hematochezia, Melena, Nausea, Vomiting Genitourinary: Reports: As per HPI. Denies: Dysuria, Frequency, Hematuria, Incontinence, Retention, Testicular pain, Testicular mass, Urgency Musculoskeletal: Reports: As per HPI. Denies: Arthralgia, Back pain, Gout, Joint swelling, Myalgia, Neck pain Skin: Reports: As per HPI. Denies: Bruising, Change in color, Change in hair/ nails, Lesions, Pruritus, Rash Neurological: Reports: As per HPI. Denies: Abnormal gait, Confusion, Headache, Numbness, Paresthesias, Seizure, Tingling, Tremors, Vertigo, Weakness Psychiatric: Reports: As per HPI. Denies: Anxiety, Auditory hallucinations, Depression, Homicidal thoughts, Suicidal thoughts, Visual hallucinations Hematological/Lymphatic: Reports: As per HPI. 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 - Hx Genitourinary Disorders: Yes Hx Prostate Problems: Yes - ENDOCRINE Hx Endocrine Disorders: No - MUSCULOSKELETAL Hx Musculoskeletal Disorders: No Hx Arthritis: Yes (bilateral total knee replacements) - PSYCH Hx Psych Problems: Yes Hx Depression: Yes (on Paroxetine) - HEMATOLOGY/ONCOLOGY Hx Hematology/Oncology Disorders: Yes Hx Blood Transfusions: Yes (pt own blood) Hx Blood Transfusion Reaction: No Family Medical History Any Significant Family History?: No Hx Cancer: Father, Mother Physical Exam - General General Appearance: Alert, Oriented x3, Cooperative, Mild distress - Head Head exam: Normal inspection - Eye Eye exam: Normal appearance, PERRL, EOMI Pupils: Normal accommodation - ENT ENT exam: Normal exam, Mucous membranes moist, Normal external ear exam, Normal orophraynx Ear exam: Normal external inspection. negative: External canal tenderness Nasal Exam: Normal inspection. negative: Discharge, Sinus tenderness Mouth exam: Normal external inspection, Tongue normal Teeth exam: Normal inspection. negative: Dental caries Throat exam: Normal inspection. negative: Tonsillar erythema, Tonsillar exudate - Neck Neck exam: Normal inspection, Full ROM. negative: Tenderness - Respiratory Respiratory exam: Normal lung sounds bilaterally. negative: Respiratory distress - Cardiovascular Cardiovascular Exam: Regular rate, Normal rhythm, Normal heart sounds - GI/Abdominal GI/Abdominal exam: Soft, Normal bowel sounds. negative: Tenderness - Rectal Rectal exam: Deferred - exam: Deferred - Extremities Extremities exam: Normal inspection, Full ROM, Normal capillary refill, Tenderness Image of Hand: 1 - superficial abrasion 2 - superficial abrasion 3 - 3cm lac - Back Back exam: Reports: Normal inspection, Full ROM. Denies: Muscle spasm, Rash noted, Tenderness - Neurological Neurological exam: Alert, CN II-XII intact, Normal gait, Oriented X3 - Psychiatric Psychiatric exam: Normal affect, Normal mood - Skin Skin exam: Dry, Intact, Normal color, Warm Course Vital Signs 12/29/17 14:34 Temperature 98.6 F Pulse Rate 87 Respiratory 16 Rate Blood Pressure 125/84 Pulse Ox 95 Disposition Disposition: Discharge Clinical Impression: Laceration of finger of left hand Qualifiers: Encounter type: initial encounter Finger: little finger Damage to nail status: without damage Foreign body presence: without foreign body Qualified Code(s): S61.217A - Laceration without foreign body of left little finger without damage to nail, initial encounter Disposition: Home, Self-Care Condition: (1) Good Instructions: Laceration (ED) Additional Instructions: sutures out in 8 days. return sooner if worse Quality - Quality Measures Quality Measures: N/A - Blood Pressure Screening Does Patient Have Any of the Following: No Blood Pressure Classification: Pre-Hypertensive BP Reading Systolic Measurement: 125 Diastolic Measurement: 84 Screening for High Blood Pressure: < Pre-Hypertensive BP, F/U Documented > [ G8950] Pre-Hypertensive Follow-up Interventions: Follow-up with rescreen every year. Laceration - Other - Time Out Informed consent:: Informed consent obtained Confirmed first & last name, , procedure, correct site?: Yes Start Date:: 12/29/17 Start Time:: 14:30 - Location Location of laceration:: Left Laceration located on:: Finger Laceration digit detail:: 5th Length of laceration:: 3 Length of laceration:: cm - Clean and Prep Laceration cleaning method:: Cleansed Laceration cleaning agent:: Normal Saline - Local Anesthetic Lidocaine used:: 1% Lidocaine dose:: 1 mL EMLA cream used?: No - Medication Medicated for procedure?: No - Procedural Detail Tissue detail:: Torn Foreign body in the wound?: No Undermining was preformed?: No Stent applied?: No Lenore applied?: No Suture material/size:: 5-0: Prolene Number of skin sutures:: 6 - Post Procedural Detail Complications:: No Procedure Tolerated by Patient:: Well
== END 2017-12-29 15:47 | disposition home or self-care (01) ==
LOC: ER 14:31
DX: S61.217A Laceration without foreign body of left little finger without damage to nail, initial encounter (principal); W27.0XXA Contact with workbench tool, initial encounter; Y92.009 Unspecified place in unspecified non-institutional (private) residence as the place of occurrence of the external cause; I10 Essential (primary) hypertension
CPT/HCPCS: 12002; 99283

== ENCOUNTER 2018-01-06 13:57 | Emergency (ER) | payer MEDICARE ==
--- NOTE | 2018-01-06 14:17 | Emergency Department Record ---
History of Present Illness - General Chief Complaint: Suture removal Stated Complaint: REMOVE STITCHES Time Seen by Provider: 01/06/18 14:09 Source: Patient, RN notes reviewed - History of Present Illness Initial Comments: sutures placed 8 days ago Complaint: Suture/staple removal - Related Data Allergies Allergy/AdvReac Type Severity Reaction Status Date / Time meperidine Allergy Unknown HIVES Verified 01/06/18 14:05 Review of Systems Reviewed: No additional complaints except as noted below Constitutional: Reports: As per HPI. Denies: Chills, Fever, Malaise, Night sweats, Weakness, Weight change Eyes: Reports: As per HPI. Denies: Eye discharge, Eye pain, Photophobia, Vision change ENT: Reports: As per HPI. Denies: Congestion, Dental pain, Ear pain, Epistaxis , Hearing loss, Throat pain Respiratory: Reports: As per HPI. Denies: Cough, Dyspnea, Hemoptysis, Stridor, Wheezes Cardiovascular: Reports: As per HPI. Denies: Arrhythmia, Chest pain, Dyspnea on exertion, Edema, Murmurs, Orthopnea, Palpitations, Paroxysmal nocturnal dyspnea, Rheumatic Fever, Syncope Endocrine: Reports: As per HPI. Denies: Fatigue, Heat or cold intolerance, Polydipsia, Polyuria Gastrointestinal: Reports: As per HPI. Denies: Abdominal pain, Constipation, Diarrhea, Hematemesis, Hematochezia, Melena, Nausea, Vomiting Genitourinary: Reports: As per HPI. Denies: Dysuria, Frequency, Hematuria, Incontinence, Retention, Testicular pain, Testicular mass, Urgency Musculoskeletal: Reports: As per HPI. Denies: Arthralgia, Back pain, Gout, Joint swelling, Myalgia, Neck pain Skin: Reports: As per HPI. Denies: Bruising, Change in color, Change in hair/ nails, Lesions, Pruritus, Rash Neurological: Reports: As per HPI. Denies: Abnormal gait, Confusion, Headache, Numbness, Paresthesias, Seizure, Tingling, Tremors, Vertigo, Weakness Psychiatric: Reports: As per HPI. Denies: Anxiety, Auditory hallucinations, Depression, Homicidal thoughts, Suicidal thoughts, Visual hallucinations Hematological/Lymphatic: Reports: As per HPI. Denies: Anemia, Blood Clots, Easy bleeding, Easy bruising, Swollen glands Past Medical History - SOCIAL HISTORY Smoking Status: Never smoker Drug Use: None - RESPIRATORY Hx Respiratory Disorders: No - CARDIOVASCULAR Hx Cardio Disorders: Yes Hx Abnormal EKG: No Hx Deep Vein Thrombosis: Yes (left upper ext.) Hx Hypertension: Yes Hx Irregular Heartbeat: Yes (on occasion and takes verapamil ) Comment:: enlarged heart - NEURO Hx Neuro Disorders: No Hx Dizziness: Yes Hx of Migraines: Yes Hx TIA: No - GI Hx GI Disorders: Yes Hx Hiatal Hernia: Yes Comment:: partially twisted bowel. - Hx Genitourinary Disorders: Yes Hx Prostate Problems: Yes - ENDOCRINE Hx Endocrine Disorders: No - MUSCULOSKELETAL Hx Musculoskeletal Disorders: No Hx Arthritis: Yes (bilateral total knee replacements) - PSYCH Hx Psych Problems: Yes Hx Depression: Yes (on Paroxetine) - HEMATOLOGY/ONCOLOGY Hx Hematology/Oncology Disorders: Yes Hx Blood Transfusions: Yes (pt own blood) Hx Blood Transfusion Reaction: No Family Medical History Hx Cancer: Father, Mother Physical Exam - General General Appearance: Alert, Oriented x3, Cooperative, No acute distress - Head Head exam: Normal inspection - Eye Eye exam: Normal appearance, PERRL Pupils: Normal accommodation - ENT ENT exam: Normal exam, Mucous membranes moist, Normal external ear exam, Normal orophraynx, TM's normal bilaterally Ear exam: Normal external inspection. negative: External canal tenderness Nasal Exam: Normal inspection. negative: Discharge, Sinus tenderness Mouth exam: Normal external inspection, Tongue normal Teeth exam: Normal inspection. negative: Dental caries Throat exam: Normal inspection. negative: Tonsillar erythema, Tonsillar exudate - Neck Neck exam: Normal inspection, Full ROM. negative: Tenderness - Respiratory Respiratory exam: Normal lung sounds bilaterally. negative: Respiratory distress - Cardiovascular Cardiovascular Exam: Regular rate, Normal rhythm, Normal heart sounds - GI/Abdominal GI/Abdominal exam: Soft, Normal bowel sounds. negative: Tenderness - Rectal Rectal exam: Deferred - exam: Deferred - Extremities Extremities exam: Normal inspection, Full ROM, Normal capillary refill. negative: Tenderness - Back Back exam: Reports: Normal inspection, Full ROM. Denies: Muscle spasm, Rash noted, Tenderness - Neurological Neurological exam: Alert, Normal gait, Oriented X3, Reflexes normal - Psychiatric Psychiatric exam: Normal affect, Normal mood - Skin Skin exam: Dry, Intact, Normal color, Warm Course no signs of infection Disposition Clinical Impression: Visit for suture removal Disposition: Home, Self-Care Condition: (1) Good Instructions: Stitches Removal (ED) Additional Instructions: follow up with Dr. Michel Forms: Patient Portal Access Time of Disposition: 14:20 Quality - Quality Measures Quality Measures: N/A - Blood Pressure Screening Does Patient Have Any of the Following: No Blood Pressure Classification: Pre-Hypertensive BP Reading Systolic Measurement: 133 Diastolic Measurement: 75 Screening for High Blood Pressure: < Pre-Hypertensive BP, F/U Documented > [ G8950] Pre-Hypertensive Follow-up Interventions: Referral to alternative/primary care provider.
== END 2018-01-06 14:28 | disposition home or self-care (01) ==
LOC: ER 13:57
DX: Z48.02 Encounter for removal of sutures (principal)

== ENCOUNTER 2018-01-13 12:34 | Emergency (ER) | payer MEDICARE ==
--- NOTE | 2018-01-13 12:53 | Emergency Department Record ---
History of Present Illness - General Chief complaint: Extremity Problem Stated complaint: PAIN LT ARM Time Seen by Provider: 01/13/18 12:42 Source: Patient, RN notes reviewed Mode of Arrival: Ambulatory - History of Present Illness Initial comments: patient had a dvt in the left arm august 2017 and on xarelto 20 mg till nov 2017 . He had a tinge of pain inthe left elbow this am and he was concerned about if the clot is coming back and he noticed some discomfort driving 4 days ago. Pulses present in both arms and slighly less in the left arm. Onset/Timin -: Hour(s) Location: Left, Elbow, Forearm History of Same: Yes Radiation: None Severity scale (1-10): 2 Quality: Other Consistency: Intermittent, Now resolved Improves with: Nothing Worsens with: Nothing Associated Symptoms: Denies other symptoms - Related Data Allergies Allergy/AdvReac Type Severity Reaction Status Date / Time meperidine Allergy Unknown HIVES Verified 01/13/18 12:38 Travel Screening - Travel/Exposure Within Last 30 Days Have you traveled within the last 30 days?: No - Travel/Exposure Within Last Year Have you traveled outside the [place] in the last year?: No - Additonal Travel Details Have you been exposed to anyone with a communicable illness?: No - Travel Symptoms Symptom Screening: None Review of Systems Reviewed: No additional complaints except as noted below Constitutional: Reports: As per HPI. Denies: Chills, Fever, Malaise, Night sweats, Weakness, Weight change Eyes: Reports: As per HPI. Denies: Eye discharge, Eye pain, Photophobia, Vision change ENT: Reports: As per HPI. Denies: Congestion, Dental pain, Ear pain, Epistaxis , Hearing loss, Throat pain Respiratory: Reports: As per HPI. Denies: Cough, Dyspnea, Hemoptysis, Stridor, Wheezes Cardiovascular: Reports: As per HPI. Denies: Arrhythmia, Chest pain, Dyspnea on exertion, Edema, Murmurs, Orthopnea, Palpitations, Paroxysmal nocturnal dyspnea, Rheumatic Fever, Syncope Endocrine: Reports: As per HPI. Denies: Fatigue, Heat or cold intolerance, Polydipsia, Polyuria Gastrointestinal: Reports: As per HPI. Denies: Abdominal pain, Constipation, Diarrhea, Hematemesis, Hematochezia, Melena, Nausea, Vomiting Genitourinary: Reports: As per HPI. Denies: Dysuria, Frequency, Hematuria, Incontinence, Retention, Testicular pain, Testicular mass, Urgency Musculoskeletal: Reports: As per HPI. Denies: Arthralgia, Back pain, Gout, Joint swelling, Myalgia, Neck pain Skin: Reports: As per HPI. Denies: Bruising, Change in color, Change in hair/ nails, Lesions, Pruritus, Rash Neurological: Reports: As per HPI. Denies: Abnormal gait, Confusion, Headache, Numbness, Paresthesias, Seizure, Tingling, Tremors, Vertigo, Weakness Psychiatric: Reports: As per HPI. Denies: Anxiety, Auditory hallucinations, Depression, Homicidal thoughts, Suicidal thoughts, Visual hallucinations Hematological/Lymphatic: Reports: As per HPI. 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 - Hx Genitourinary Disorders: Yes Hx Prostate Problems: Yes - ENDOCRINE Hx Endocrine Disorders: No - MUSCULOSKELETAL Hx Musculoskeletal Disorders: No Hx Arthritis: Yes (bilateral total knee replacements) - PSYCH Hx Psych Problems: Yes Hx Depression: Yes (on Paroxetine) - HEMATOLOGY/ONCOLOGY Hx Hematology/Oncology Disorders: Yes Hx Blood Transfusions: Yes (pt own blood) Hx Blood Transfusion Reaction: No Family Medical History Any Significant Family History?: Yes Hx Cancer: Father, Mother Physical Exam - General General Appearance: Alert, Oriented x3, Cooperative, No acute distress - Head Head exam: Normal inspection - Eye Eye exam: Normal appearance, PERRL Pupils: Normal accommodation - ENT ENT exam: Normal exam, Mucous membranes moist, Normal external ear exam, Normal orophraynx, TM's normal bilaterally Ear exam: Normal external inspection. negative: External canal tenderness Nasal Exam: Normal inspection. negative: Discharge, Sinus tenderness Mouth exam: Normal external inspection, Tongue normal Teeth exam: Normal inspection. negative: Dental caries Throat exam: Normal inspection. negative: Tonsillar erythema, Tonsillar exudate - Neck Neck exam: Normal inspection, Full ROM. negative: Tenderness - Respiratory Respiratory exam: Normal lung sounds bilaterally. negative: Respiratory distress - Cardiovascular Cardiovascular Exam: Regular rate, Normal rhythm, Normal heart sounds - GI/Abdominal GI/Abdominal exam: Soft, Normal bowel sounds. negative: Tenderness - Rectal Rectal exam: Deferred - exam: Deferred - Extremities Extremities exam: Normal inspection, Full ROM, Normal capillary refill, Tenderness (tenderness in the left axillae but better now.) - Back Back exam: Reports: Normal inspection, Full ROM. Denies: Muscle spasm, Rash noted, Tenderness - Neurological Neurological exam: Alert, Normal gait, Oriented X3, Reflexes normal - Psychiatric Psychiatric exam: Normal affect, Normal mood - Skin Skin exam: Dry, Intact, Normal color, Warm Course Vital Signs 01/13/18 12:39 Temperature 98.3 F Pulse Rate 76 Respiratory 18 Rate Blood Pressure 133/80 Pulse Ox 100 Patient states no arm pain. - Reevaluation(s) Reevaluation #1: unable to send venous dopler immages to the radiologist and I look at the images and he has an old clot in the same spot as his previous DVT and clinically doesn't look like a new DVT and will treat his discomfort in his elbow with tylenol currently no discomfort or pain. 01/13/18 17:24 Disposition Clinical Impression: Tendonitis, History of DVT (deep vein thrombosis) Disposition: Home, Self-Care Condition: (1) Good Instructions: Tendinitis (ED) Additional Instructions: tylenol for pain follow up with family in 2-5 days Forms: Patient Portal Access Time of Disposition: 17:29 Quality - Quality Measures Quality Measures: N/A - Blood Pressure Screening Does Patient Have Any of the Following: No, Active Dx of HTN Blood Pressure Classification: Pre-Hypertensive BP Reading Systolic Measurement: 133 Diastolic Measurement: 80 Screening for High Blood Pressure: Patient Exclusion, Hx of HTN [G9744]
--- NOTE | 2018-01-14 15:07 | US VENOUS DOPPLER REPORT ---
EXAM: VENOUS DOPPLER ULTRASOUND OF THE LEFT UPPER EXTREMITY HISTORY: PAIN LEFT ARM. TECHNIQUE: Sonographic evaluation of the left upper extremity was performed with addition of Doppler, compression and augmentation. FINDINGS: There is a deep vein thrombosis in the cephalic vein. No evidence of deep vein thrombosis in the remainder of the vasculature. IMPRESSION: DEEP VEIN THROMBOSIS IN THE CEPHALIC VEIN. THE REMAINDER OF THE VASCULATURE IS PATENT. JOB NUMBER: [id number] MTDD
== END 2018-01-13 17:49 | disposition home or self-care (01) ==
LOC: ER 12:34
DX: M25.522 Pain in left elbow (principal); M79.632 Pain in left forearm; M77.9 Enthesopathy, unspecified; L40.9 Psoriasis, unspecified; I10 Essential (primary) hypertension; Z86.718 Personal history of other venous thrombosis and embolism
CPT/HCPCS: 80053; 85025; 99283

== ENCOUNTER 2018-04-01 13:17 | Emergency (ER) | payer MEDICARE, OTHER ==
--- NOTE | 2018-04-01 13:33 | Emergency Department Record ---
History of Present Illness - General Chief complaint: Pain Stated complaint: LEFT ELBOW PAIN Time Seen by Provider: 04/01/18 13:19 Source: Patient Mode of Arrival: Ambulatory Limitations: No limitations - History of Present Illness Initial comments: 67 yo male presents at the request of his PCP for evaluation of the left arm. He reports last year he developed a clot in his LUE. He was treated with Xarelto. This morning he noticed a tender area in the AC fossa that is similar in location to his clot. He denies any other symptoms. No chest pain, cough, shortness of breath. He does not know why he developed the prior clot. MD Complaint: Extremity pain -: Hour(s) Location: Left History of Same: Yes -: Yes Myalgia Radiation: Proximal Quality: Aching Consistency: Constant Improves with: Nothing Worsens with: Palpation Associated Symptoms: Denies other symptoms - Related Data Previous Rx's Medication Instructions Recorded Rivaroxaban [Xarelto] 15 mg PO BID #42 tablet 04/01/18 Allergies Allergy/AdvReac Type Severity Reaction Status Date / Time meperidine Allergy Unknown HIVES Verified 04/01/18 13:34 Review of Systems Constitutional: Denies: Chills, Fever, Malaise, Weakness Eyes: Denies: Eye discharge ENT: Denies: Congestion, Epistaxis, Throat pain Respiratory: Denies: Cough, Dyspnea, Hemoptysis, Wheezes Cardiovascular: Denies: Chest pain, Palpitations, Syncope Endocrine: Denies: Fatigue Gastrointestinal: Denies: Abdominal pain, Diarrhea, Nausea, Vomiting Genitourinary: Denies: Dysuria, Frequency, Hematuria Musculoskeletal: Reports: As per HPI, Myalgia. Denies: Arthralgia, Back pain Skin: Denies: Bruising, Change in color, Rash Neurological: Denies: Headache, Numbness, Vertigo, Weakness Psychiatric: Denies: Anxiety Hematological/Lymphatic: Reports: As per HPI, Blood Clots. Denies: Easy bleeding, Easy bruising Past Medical History - SOCIAL HISTORY Smoking Status: Never smoker Drug Use: None - RESPIRATORY Hx Respiratory Disorders: No - CARDIOVASCULAR Hx Cardio Disorders: Yes Hx Abnormal EKG: No Hx Deep Vein Thrombosis: Yes (left upper ext.) Hx Hypertension: Yes Hx Irregular Heartbeat: Yes (on occasion and takes verapamil ) Comment:: enlarged heart - NEURO Hx Neuro Disorders: No Hx Dizziness: Yes Hx of Migraines: Yes Hx TIA: No - GI Hx GI Disorders: Yes Hx Hiatal Hernia: Yes Comment:: partially twisted bowel. - Hx Genitourinary Disorders: Yes Hx Prostate Problems: Yes - ENDOCRINE Hx Endocrine Disorders: No - MUSCULOSKELETAL Hx Musculoskeletal Disorders: No Hx Arthritis: Yes (bilateral total knee replacements) - PSYCH Hx Psych Problems: Yes Hx Depression: Yes (on Paroxetine) - HEMATOLOGY/ONCOLOGY Hx Hematology/Oncology Disorders: Yes Hx Blood Transfusions: Yes (pt own blood) Hx Blood Transfusion Reaction: No Family Medical History Hx Cancer: Father, Mother Physical Exam - General General Appearance: Alert, Oriented x3, Cooperative, No acute distress Limitations: No limitations - Head Head exam: Atraumatic, Normal inspection - Eye Eye exam: Normal appearance. negative: Conjunctival injection - ENT ENT exam: Normal exam, Mucous membranes moist Ear exam: Normal external inspection Nasal Exam: Normal inspection Mouth exam: Normal external inspection - Neck Neck exam: Normal inspection - Respiratory Respiratory exam: Normal lung sounds bilaterally. negative: Respiratory distress - Cardiovascular Cardiovascular Exam: Regular rate, Normal rhythm, Normal heart sounds Peripheral Pulses: 2+: Radial (R) - Rectal Rectal exam: Deferred - exam: Deferred - Extremities Extremities exam: Normal inspection, Full ROM, Normal capillary refill, Tenderness. negative: Pedal edema Image of Full Body: 1 - normal inspection, tender in AC, radial intact, no LUE edema, full ROM of the elbow - Back Back exam: Denies: CVA tenderness (R), CVA tenderness (L) - Neurological Neurological exam: Alert, Oriented X3 - Psychiatric Psychiatric exam: Normal affect, Normal mood - Skin Skin exam: Dry, Intact, Normal color, Warm. negative: Erythema Course - Reevaluation(s) Reevaluation #1: Venous doppler of the LUE ordered He is otherwise asymptomatic 04/01/18 13:32 04/01/18 15:11 The US demonstrates non compressible area of DVT in the AC fossa. He will be placed back on Xarelto and follow up with his PCP. 04/01/18 15:16 I CHARISSE Michel. He will follow up the patient in the office on Xarelto Disposition Disposition: Discharge Clinical Impression: DVT of upper extremity (deep vein thrombosis) Disposition: Home, Self-Care Condition: (1) Good Instructions: Deep Vein Thrombosis Prevention (ED) Additional Instructions: Take the the Xarelto 15mg twice daily Call your doctor or be seen if you have any concerns about the medication, bleeding or concerns Call Dr Michel to be seen in the next week. You will need to discuss duration of treatment and see him before the 3 week dosing of 15mg twice daily runs out Prescriptions: Rivaroxaban [Xarelto] 15 mg PO BID #42 tablet Forms: Patient Portal Access Time of Disposition: 15:16 Quality - Quality Measures Quality Measures: N/A - Blood Pressure Screening Does Patient Have Any of the Following: Active Dx of HTN Blood Pressure Classification: Pre-Hypertensive BP Reading Systolic Measurement: 140 Diastolic Measurement: 87 Screening for High Blood Pressure: Patient Exclusion, Hx of HTN [G9744]
[2018-04-01] MEDS ORDERED: RIVAROXABAN 15 MG TABLET PO STA (15:10)
--- NOTE | 2018-04-03 21:14 | US VENOUS DOPPLER REPORT ---
EXAM: ULTRASOUND VENOUS DOPPLER UPPER EXT LT HISTORY: HISTORY OF DVT. ANTECUBITAL PAIN SINCE 6:00 A.M. TECHNIQUE: Kiran-scale, color Doppler, and duplex Doppler evaluation of the deep venous structures of the left upper extremity performed with imaging obtained from the forearm proximally to the subclavian vein and internal jugular vein. COMPARISON: Venous Doppler of the left upper extremity dated 01/13/2018. FINDINGS: As demonstrated on the prior examination, there is a segment of the cephalic vein at the level of the antecubital fossa which does not compress and has heterogeneous echoes within. Blood flow is not well demonstrated at this level. The remaining venous structures are with normal blood flow and compressible. These waveforms augment. IMPRESSION: DEMONSTRATED ON THE PRIOR EXAMINATION, THERE IS AGAIN SUGGESTION OF A SEGMENT OF THE CEPHALIC VEIN AT THE LEVEL OF THE ANTECUBITAL FOSSA, WHICH IS THROMBOSED. OTHERWISE, NO EVIDENCE OF VENOUS THROMBOSIS IN THE LEFT UPPER EXTREMITY. JOB NUMBER: [id number] MTDD
== END 2018-04-01 15:40 | disposition home or self-care (01) ==
LOC: ER 13:17
DX: I82.622 Acute embolism and thrombosis of deep veins of left upper extremity (principal); I10 Essential (primary) hypertension
CPT/HCPCS: 99283

== ENCOUNTER 2018-05-03 11:00 | Emergency (ER) | payer MEDICARE ==
--- NOTE | 2018-05-03 11:10 | Emergency Department Record ---
History of Present Illness - General Stated complaint: RIGHT ARM CONCERN Time Seen by Provider: 05/03/18 11:04 Source: Patient, Family Mode of Arrival: Ambulatory Limitations: No limitations - History of Present Illness Initial comments: 67 yo male presents with LUE forearm pain and swelling. No trauma, fevers, warmth or redness. He is being treated for a right upper extremity DVT currently. He is on Xarelto. No cough, chest pain, shortness of breath. No lower extremity symptoms. MD Complaint: Extremity pain -: Days(s) Location: Left History of Same: Yes -: Yes Myalgia Radiation: Distal Quality: Aching Consistency: Constant Improves with: Nothing Worsens with: Palpation Associated Symptoms: Denies other symptoms - Related Data Home Medications Medication Instructions Recorded Confirmed Last Taken Rivaroxaban [Xarelto] 20 mg PO DAILY 05/03/18 05/03/18 05/03/18 Allergies Allergy/AdvReac Type Severity Reaction Status Date / Time meperidine Allergy Unknown HIVES Verified 04/01/18 13:34 Review of Systems Constitutional: Denies: Chills, Fever, Malaise, Weakness Eyes: Denies: Eye discharge ENT: Denies: Congestion, Throat pain Respiratory: Denies: Cough, Dyspnea, Hemoptysis, Wheezes Cardiovascular: Denies: Chest pain, Palpitations, Syncope Endocrine: Denies: Fatigue Gastrointestinal: Denies: Abdominal pain, Diarrhea, Nausea, Vomiting Genitourinary: Denies: Dysuria, Frequency Musculoskeletal: Reports: Myalgia. Denies: Arthralgia, Back pain Skin: Denies: Bruising, Change in color, Rash Neurological: Denies: Headache, Numbness, Tremors, Weakness Psychiatric: Denies: Anxiety Hematological/Lymphatic: Reports: As per HPI, Blood Clots. Denies: Easy bleeding, Easy bruising Past Medical History - SOCIAL HISTORY Smoking Status: Never smoker Drug Use: None - RESPIRATORY Hx Respiratory Disorders: No - CARDIOVASCULAR Hx Cardio Disorders: Yes Hx Abnormal EKG: No Hx Deep Vein Thrombosis: Yes (left upper ext.) Hx Hypertension: Yes Hx Irregular Heartbeat: Yes (on occasion and takes verapamil ) Comment:: enlarged heart - NEURO Hx Neuro Disorders: No Hx Dizziness: Yes Hx of Migraines: Yes Hx TIA: No - GI Hx GI Disorders: Yes Hx Hiatal Hernia: Yes Comment:: partially twisted bowel. - Hx Genitourinary Disorders: Yes Hx Prostate Problems: Yes - ENDOCRINE Hx Endocrine Disorders: No - MUSCULOSKELETAL Hx Musculoskeletal Disorders: No Hx Arthritis: Yes (bilateral total knee replacements) - PSYCH Hx Psych Problems: Yes Hx Depression: Yes (on Paroxetine) - HEMATOLOGY/ONCOLOGY Hx Hematology/Oncology Disorders: Yes Hx Blood Transfusions: Yes (pt own blood) Hx Blood Transfusion Reaction: No Family Medical History Hx Cancer: Father, Mother Physical Exam - General General Appearance: Alert, Oriented x3, Cooperative, No acute distress Limitations: No limitations - Head Head exam: Atraumatic, Normal inspection - Eye Eye exam: Normal appearance, PERRL. negative: Conjunctival injection, Scleral icterus - ENT ENT exam: Normal exam, Mucous membranes moist Ear exam: Normal external inspection Nasal Exam: Normal inspection Mouth exam: Normal external inspection - Neck Neck exam: Normal inspection - Respiratory Respiratory exam: Normal lung sounds bilaterally. negative: Respiratory distress, Rhonchi, Wheezes - Cardiovascular Cardiovascular Exam: Regular rate, Normal rhythm, Normal heart sounds - GI/Abdominal GI/Abdominal exam: Soft. negative: Tenderness - Rectal Rectal exam: Deferred - exam: Deferred - Extremities Extremities exam: Normal inspection, Full ROM, Normal capillary refill, Tenderness. negative: Calf tenderness, Joint swelling, Pedal edema Image of Full Body: 1 - normal inspection, no abnormal warmth or redness, it is tender but very soft - Back Back exam: Denies: CVA tenderness (R), Rash noted - Neurological Neurological exam: Alert, Oriented X3 - Psychiatric Psychiatric exam: Normal affect, Normal mood - Skin Skin exam: Dry, Intact, Normal color, Warm Course - Reevaluation(s) Reevaluation #1: 05/03/18 13:40 The venous doppler was negative The patient was instructed to return if worse or see his PCP for a recheck Disposition Disposition: Discharge Clinical Impression: Forearm pain Qualifiers: Laterality: left Qualified Code(s): M79.632 - Pain in left forearm Disposition: Home, Self-Care Condition: (1) Good Instructions: Arm Pain (ED) Additional Instructions: Call your doctor for the next available follow up appointment Return to the ER for a recheck if worse, any new concerns or questions Review this ER visit and the tests performed with your family doctor Forms: Patient Portal Access Time of Disposition: 13:41 Quality - Quality Measures Quality Measures: N/A - Blood Pressure Screening Does Patient Have Any of the Following: No Blood Pressure Classification: Normal BP Reading Systolic Measurement: 118 Diastolic Measurement: 72 Screening for High Blood Pressure: < Normal BP, F/U Not Required > [G8783]
--- NOTE | 2018-05-06 05:29 | US VENOUS DOPPLER REPORT ---
EXAM: RIGHT UPPER EXTREMITY VENOUS DOPPLER ULTRASOUND HISTORY: PALPABLE LUMP IN MID RIGHT FOREARM. HISTORY OF DVT. TECHNIQUE: Kiran scale, color Doppler and Duplex Doppler evaluation of the right upper extremity was performed. Additional focused imaging over the area of palpable lump also performed. Comparison: None. FINDINGS: The internal jugular vein, subclavian vein, axillary vein, brachial vein, basilic vein, cephalic vein, radial and ulnar veins are anechoic and with normal Doppler waveforms. The veins beyond the axillary vein are noted to be completely compressible. No mass or fluid collection at the level of palpable abnormality. IMPRESSION: 1. NO EVIDENCE OF DEEP VENOUS THROMBOSIS WITHIN THE RIGHT UPPER EXTREMITY. 2. NO DEFINITE MASS NOR FLUID COLLECTION WITHIN THE RIGHT MID FOREARM AT THE LEVEL OF PALPABLE ABNORMALITY. JOB NUMBER: [id number] [facility]
== END 2018-05-03 13:54 | disposition home or self-care (01) ==
LOC: ER 11:00
DX: M79.632 Pain in left forearm (principal); I82.722 Chronic embolism and thrombosis of deep veins of left upper extremity; I10 Essential (primary) hypertension
CPT/HCPCS: 99283; 99284

== ENCOUNTER 2018-07-21 10:53 | Emergency (ER) | payer MEDICARE, OTHER ==
--- NOTE | 2018-07-21 11:59 | Emergency Department Record ---
History of Present Illness - General Chief Complaint: Cough Stated Complaint: COUGH/COLD Time Seen by Provider: 07/21/18 11:53 Source: Patient, RN notes reviewed Mode of Arrival: Ambulatory - History of Present Illness Initial Comments: sore throat and cough dry and sinus pressure left side ,symptoms for one week Onset/Timin -: Week(s) - Related Data Previous Rx's Medication Instructions Recorded Amoxicillin 500Mg Capsule [Amoxil] 500 mg PO TID #30 tab 07/21/18 Allergies Allergy/AdvReac Type Severity Reaction Status Date / Time meperidine Allergy Unknown HIVES Verified 07/21/18 11:20 Travel Screening - Travel/Exposure Within Last 30 Days Have you traveled within the last 30 days?: No - Travel/Exposure Within Last Year Have you traveled outside the [place] in the last year?: No - Additonal Travel Details Have you been exposed to anyone with a communicable illness?: No - Travel Symptoms Symptom Screening: None Review of Systems Reviewed: No additional complaints except as noted below Constitutional: Reports: As per HPI. Denies: Chills, Fever, Malaise, Night sweats, Weakness, Weight change Eyes: Reports: As per HPI. Denies: Eye discharge, Eye pain, Photophobia, Vision change ENT: Reports: As per HPI, Congestion. Denies: Dental pain, Ear pain, Epistaxis, Hearing loss, Throat pain Respiratory: Reports: As per HPI. Denies: Cough, Dyspnea, Hemoptysis, Stridor, Wheezes Cardiovascular: Reports: As per HPI. Denies: Arrhythmia, Chest pain, Dyspnea on exertion, Edema, Murmurs, Orthopnea, Palpitations, Paroxysmal nocturnal dyspnea, Rheumatic Fever, Syncope Endocrine: Reports: As per HPI. Denies: Fatigue, Heat or cold intolerance, Polydipsia, Polyuria Gastrointestinal: Reports: As per HPI. Denies: Abdominal pain, Constipation, Diarrhea, Hematemesis, Hematochezia, Melena, Nausea, Vomiting Genitourinary: Reports: As per HPI. Denies: Dysuria, Frequency, Hematuria, Incontinence, Retention, Testicular pain, Testicular mass, Urgency Musculoskeletal: Reports: As per HPI. Denies: Arthralgia, Back pain, Gout, Joint swelling, Myalgia, Neck pain Skin: Reports: As per HPI. Denies: Bruising, Change in color, Change in hair/nails, Lesions, Pruritus, Rash Neurological: Reports: As per HPI. Denies: Abnormal gait, Confusion, Headache, Numbness, Paresthesias, Seizure, Tingling, Tremors, Vertigo, Weakness Psychiatric: Reports: As per HPI. Denies: Anxiety, Auditory hallucinations, Depression, Homicidal thoughts, Suicidal thoughts, Visual hallucinations Hematological/Lymphatic: Reports: As per HPI. 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 - Hx Genitourinary Disorders: Yes Hx Prostate Problems: Yes - ENDOCRINE Hx Endocrine Disorders: No - MUSCULOSKELETAL Hx Musculoskeletal Disorders: No Hx Arthritis: Yes (bilateral total knee replacements) - PSYCH Hx Psych Problems: Yes Hx Depression: Yes (on Paroxetine) - HEMATOLOGY/ONCOLOGY Hx Hematology/Oncology Disorders: Yes Hx Blood Transfusions: Yes (pt own blood) Hx Blood Transfusion Reaction: No Family Medical History Any Significant Family History?: No Hx Cancer: Father, Mother Physical Exam - General General Appearance: Alert, Oriented x3, Cooperative, No acute distress - Head Head exam: Normal inspection - Eye Eye exam: Normal appearance, PERRL Pupils: Normal accommodation - ENT ENT exam: Normal exam, Mucous membranes moist, Normal external ear exam, Normal orophraynx, TM's normal bilaterally Ear exam: Normal external inspection. negative: External canal tenderness Nasal Exam: Normal inspection. negative: Discharge, Sinus tenderness Mouth exam: Normal external inspection, Tongue normal Teeth exam: Normal inspection. negative: Dental caries Throat exam: Normal inspection. negative: Tonsillar erythema, Tonsillar exudate - Neck Neck exam: Normal inspection, Full ROM. negative: Tenderness - Respiratory Respiratory exam: Normal lung sounds bilaterally. negative: Respiratory distress - Cardiovascular Cardiovascular Exam: Regular rate, Normal rhythm, Normal heart sounds - GI/Abdominal GI/Abdominal exam: Soft, Normal bowel sounds. negative: Tenderness - Rectal Rectal exam: Deferred - exam: Deferred - Extremities Extremities exam: Normal inspection, Full ROM, Normal capillary refill. negative: Tenderness - Back Back exam: Reports: Normal inspection, Full ROM. Denies: Muscle spasm, Rash noted, Tenderness - Neurological Neurological exam: Alert, Normal gait, Oriented X3, Reflexes normal - Psychiatric Psychiatric exam: Normal affect, Normal mood - Skin Skin exam: Dry, Intact, Normal color, Warm Course Vital Signs 07/21/18 11:15 Temperature 99.2 F Pulse Rate 70 Respiratory 18 Rate Blood Pressure 129/82 Pulse Ox 97 Disposition Clinical Impression: Bronchitis Sinusitis Qualifiers: Sinusitis location: unspecified location Chronicity: acute Recurrence: non- recurrent Qualified Code(s): J01.90 - Acute sinusitis, unspecified Disposition: Home, Self-Care Condition: (1) Good Instructions: Sinusitis (ED), Acute Bronchitis (ED) Additional Instructions: follow up with Dr Michel in one week Prescriptions: Amoxicillin 500Mg Capsule [Amoxil] 500 mg PO TID #30 tab Time of Disposition: 11:59 Quality - Quality Measures Quality Measures: N/A - Blood Pressure Screening Does Patient Have Any of the Following: No, Active Dx of HTN Blood Pressure Classification: Pre-Hypertensive BP Reading Systolic Measurement: 129 Diastolic Measurement: 82 Screening for High Blood Pressure: Patient Exclusion, Hx of HTN [G9744]
== END 2018-07-21 12:31 | disposition home or self-care (01) ==
LOC: ER 10:53
DX: J20.9 Acute bronchitis, unspecified (principal); J01.90 Acute sinusitis, unspecified; I10 Essential (primary) hypertension
CPT/HCPCS: 99282

== ENCOUNTER 2018-08-13 14:59 | Emergency (ER) | payer MEDICARE, OTHER ==
--- NOTE | 2018-08-13 21:21 | Emergency Department Record ---
History of Present Illness - General Chief Complaint: Cough Stated Complaint: COUGH Time Seen by Provider: 08/13/18 15:10 Source: Patient Mode of Arrival: Ambulatory Limitations: No limitations - History of Present Illness Initial Comments: Pt with one month hx of cough described as non productive. Has episodes of coughing that last up to "10 minutes". No wheeze or tightness, no fever, no sputum. Non smoker. No travel. Has been seen by Dr. Luna and treated with Amox with no change in the cough. No new meds, no DEX inhibitors. MD Complaint: Cough Onset/Timin -: Month(s) Consistency: Intermittent Improves With: Nothing Worsens With: Other (talking) Associated Symptoms: Denies other symptoms Treatments Prior to Arrival: Antibiotics (Course of Amoicillin without change) - Related Data Previous Rx's Medication Instructions Recorded Albuterol Sulfate [Albuterol 18 gm IH Q4HR 7 Days #1 [email or web address] 08/13/18 Sulfate Hfa] Azithromycin [Zithromax] 250 mg PO DAILY 5 Days #6 tablet 08/13/18 Prednisone [Prednisone 20Mg] 40 mg PO DAILY #10 tab 08/13/18 Allergies Allergy/AdvReac Type Severity Reaction Status Date / Time meperidine Allergy Unknown HIVES Verified 07/21/18 11:20 Travel Screening - Travel/Exposure Within Last 30 Days Have you traveled within the last 30 days?: No - Travel/Exposure Within Last Year Have you traveled outside the [place] in the last year?: No - Additonal Travel Details Have you been exposed to anyone with a communicable illness?: No - Travel Symptoms Symptom Screening: None Review of Systems Constitutional: Denies: Chills, Fever, Weakness Eyes: Denies: Eye discharge, Photophobia, Vision change ENT: Denies: Dental pain, Ear pain, Throat pain Respiratory: Reports: As per HPI. Denies: Hemoptysis, Wheezes Cardiovascular: Denies: Arrhythmia, Chest pain, Palpitations, Syncope Endocrine: Denies: Fatigue Gastrointestinal: Denies: Abdominal pain, Diarrhea, Nausea, Vomiting Skin: Denies: Bruising, Rash Neurological: Denies: Headache, Numbness, Weakness Psychiatric: Denies: Anxiety Hematological/Lymphatic: Denies: Anemia Past Medical History - SOCIAL HISTORY Smoking Status: Never smoker Alcohol Use: None Drug Use: None - RESPIRATORY Hx Respiratory Disorders: No - CARDIOVASCULAR Hx Cardio Disorders: Yes Hx Abnormal EKG: No Hx Deep Vein Thrombosis: Yes (left upper ext.) Hx Hypertension: Yes Hx Irregular Heartbeat: Yes (on occasion and takes verapamil ) Comment:: enlarged heart - NEURO Hx Neuro Disorders: No Hx Dizziness: Yes Hx of Migraines: Yes Hx TIA: No - GI Hx GI Disorders: Yes Hx Hiatal Hernia: Yes Comment:: partially twisted bowel. - Hx Genitourinary Disorders: Yes Hx Prostate Problems: Yes - ENDOCRINE Hx Endocrine Disorders: No - MUSCULOSKELETAL Hx Musculoskeletal Disorders: No Hx Arthritis: Yes (bilateral total knee replacements) - PSYCH Hx Psych Problems: Yes Hx Depression: Yes (on Paroxetine) - HEMATOLOGY/ONCOLOGY Hx Hematology/Oncology Disorders: Yes Hx Blood Transfusions: Yes (pt own blood) Hx Blood Transfusion Reaction: No Family Medical History Any Significant Family History?: No Hx Cancer: Father, Mother Physical Exam - General General Appearance: Alert, Oriented x3, Cooperative, No acute distress - Head Head exam: Atraumatic, Normocephalic - Eye Eye exam: Normal appearance, PERRL - ENT ENT exam: Normal exam, Mucous membranes moist, Normal external ear exam, Normal orophraynx, TM's normal bilaterally - Neck Neck exam: Normal inspection, Full ROM. negative: Tenderness - Respiratory Respiratory exam: Normal lung sounds bilaterally. negative: Accessory muscle use, Chest wall tenderness, Decreased breath sounds, Prolonged expiratory, Rales, Respiratory distress, Rhonchi, Wheezes - Cardiovascular Cardiovascular Exam: Regular rate, Normal rhythm, Normal heart sounds. negative: Tachycardia - GI/Abdominal GI/Abdominal exam: Soft, Normal bowel sounds. negative: Distended, Rebound, Tenderness - Extremities Extremities exam: Normal inspection, Full ROM. negative: Calf tenderness, Tenderness - Back Back exam: Denies: Normal inspection - Neurological Neurological exam: Alert, Normal gait, Oriented X3 - Psychiatric Psychiatric exam: Normal affect, Normal mood - Skin Skin exam: Normal color. negative: Rash Course Vital Signs 08/13/18 15:01 Temperature 98.9 F Pulse Rate 82 Respiratory 20 Rate Blood Pressure 130/82 Pulse Ox 98 - Reevaluation(s) Reevaluation #1: 08/13/18 16:01 CXR read as neg for infiltrate. Pt resting comfortable. Discussed plan for Z pack, prednison, and inhaler. Pt agrees and has good primary follow up. Disposition Disposition: Discharge Clinical Impression: Bronchitis Disposition: Home, Self-Care Condition: (2) Stable Instructions: Acute Bronchitis (ED) Additional Instructions: Take Z pack as directed. Prednisone 20mg tablets, 2 tabs by mouth every morning with food for 5 days. Inhaler two puffs every 4 hours as needed for cough. Increase fluids. Family doctor recheck in 3 days as scheduled. Return to the ED as needed. Prescriptions: Albuterol Sulfate [Albuterol Sulfate Hfa] 18 gm IH Q4HR 7 Days #1 [email or web address] Prednisone [Prednisone 20Mg] 40 mg PO DAILY #10 tab Azithromycin [Zithromax] 250 mg PO DAILY 5 Days #6 tablet Forms: Patient Portal Access Time of Disposition: 16:06 Quality - Quality Measures Quality Measures: N/A - Blood Pressure Screening Does Patient Have Any of the Following: No, Active Dx of HTN Blood Pressure Classification: Pre-Hypertensive BP Reading Systolic Measurement: 130 Diastolic Measurement: 82 Screening for High Blood Pressure: Patient Exclusion, Hx of HTN [G9744]
--- NOTE | 2018-08-16 20:19 | RADIOLOGY REPORT ---
EXAM: CHEST 2 VIEWS HISTORY: COUGH. TECHNIQUE: Two views of the chest. COMPARISON: Chest radiograph 11/08/2013. FINDINGS: Cardiac silhouette within normal size limits. Thoracic aorta is calcified and tortuous. No focal pulmonary consolidation. No pleural effusion or pneumothorax. Known nodular density in the left lower lung is likely present and similar from 2014 comparison. Degenerative change throughout the thoracic spine. IMPRESSION: NO ACUTE LUNG FINDINGS. JOB NUMBER: [id number] MTDD
== END 2018-08-13 16:25 | disposition home or self-care (01) ==
LOC: ER 14:59
DX: J20.9 Acute bronchitis, unspecified (principal); I10 Essential (primary) hypertension
CPT/HCPCS: 71046; 99283

== ENCOUNTER 2019-01-22 21:25 | Emergency (ER) | payer MEDICARE, OTHER ==
[2019-01-22] MEDS ORDERED: PROPARACAINE HCL OPTH 15ML BTL OPTH ONE (21:46)
--- NOTE | 2019-01-22 22:05 | Emergency Department Record ---
History of Present Illness - General Chief complaint: Eye Problem Stated complaint: LT EYE SWOLLEN Time Seen by Provider: 01/22/19 21:45 Source: Patient Mode of Arrival: Ambulatory Limitations: No limitations Travel/[facility]posure [facility] Within 21 Days of Symptoms: No - History of Present Illness Initial comments: pt was doing woodworking when he thought he might have gotten something in his eye. he thought he got it out but then when he looked at his eye he saw that it was very red so he thought he might still have something in it. he has no pain and no feeling of fb MD chief complaint: Eye redness Onset/Timin -: Minutes(s) Onset Description: Sudden Location: Left eye Place: Home If Injury: Occurred while hammering/grinding Eye Symptoms: Foreign body sensation, Pain, Redness Severity: Mild Severity scale (1-10): 3 If Pain, Quality: Sharp Consistency: Intermittent Associated Symptoms: None Treatments Prior to Arrival: Irrigated eye - Related Data With correction: Yes Hx Tetanus Toxoid Vaccination: Yes Year of Tetanus Vaccination: 2016 Previous Rx's Medication Instructions Recorded Albuterol Sulfate [Albuterol 18 gm IH Q4HR 7 Days #1 [email or web address] 08/13/18 Sulfate Hfa] Azithromycin [Zithromax] 250 mg PO DAILY 5 Days #6 tablet 08/13/18 Prednisone [Prednisone 20Mg] 40 mg PO DAILY #10 tab 08/13/18 Allergies Allergy/AdvReac Type Severity Reaction Status Date / Time meperidine Allergy Unknown HIVES Verified 07/21/18 11:20 Travel Screening - Travel/Exposure Within Last 30 Days Have you traveled within the last 30 days?: No - Travel Symptoms Symptom Screening: None Review of Systems Reviewed: No additional complaints except as noted below Constitutional: Reports: As per HPI. Denies: Chills, Fever, Malaise, Night sweats, Weakness, Weight change Eyes: Reports: As per HPI, Other. Denies: Eye discharge, Eye pain, Photophobia, Vision change ENT: Reports: As per HPI. Denies: Congestion, Dental pain, Ear pain, Epistaxis, Hearing loss, Throat pain Respiratory: Reports: As per HPI. Denies: Cough, Dyspnea, Hemoptysis, Stridor, Wheezes Cardiovascular: Reports: As per HPI. Denies: Arrhythmia, Chest pain, Dyspnea on exertion, Edema, Murmurs, Orthopnea, Palpitations, Paroxysmal nocturnal dyspnea, Rheumatic Fever, Syncope Endocrine: Reports: As per HPI. Denies: Fatigue, Heat or cold intolerance, Polydipsia, Polyuria Gastrointestinal: Reports: As per HPI. Denies: Abdominal pain, Constipation, Diarrhea, Hematemesis, Hematochezia, Melena, Nausea, Vomiting Genitourinary: Reports: As per HPI. Denies: Dysuria, Frequency, Hematuria, Incontinence, Retention, Testicular pain, Testicular mass, Urgency Musculoskeletal: Reports: As per HPI. Denies: Arthralgia, Back pain, Gout, Joint swelling, Myalgia, Neck pain Skin: Reports: As per HPI. Denies: Bruising, Change in color, Change in hair/ nails, Lesions, Pruritus, Rash Neurological: Reports: As per HPI. Denies: Abnormal gait, Confusion, Headache, Numbness, Paresthesias, Seizure, Tingling, Tremors, Vertigo, Weakness Psychiatric: Reports: As per HPI. Denies: Anxiety, Auditory hallucinations, Depression, Homicidal thoughts, Suicidal thoughts, Visual hallucinations Hematological/Lymphatic: Reports: As per HPI. 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 - Hx Genitourinary Disorders: Yes Hx Prostate Problems: Yes - ENDOCRINE Hx Endocrine Disorders: No - MUSCULOSKELETAL Hx Musculoskeletal Disorders: No Hx Arthritis: Yes (bilateral total knee replacements) - PSYCH Hx Psych Problems: Yes Hx Depression: Yes (on Paroxetine) - HEMATOLOGY/ONCOLOGY Hx Hematology/Oncology Disorders: Yes Hx Blood Transfusions: Yes (pt own blood) Hx Blood Transfusion Reaction: No Family Medical History Any Significant Family History?: Yes Hx Cancer: Father, Mother Physical Exam - General General Appearance: Alert, Oriented x3, Cooperative, No acute distress - Head Head exam: Normal inspection - Eye Eye exam: Normal appearance, PERRL, Conjunctival injection, EOMI, Other (subconjunctival hemorrhage. no fb, no flourescein uptake, no corneal abrasion) Pupils: Normal accommodation With correction: Yes - ENT ENT exam: Normal exam, Mucous membranes moist, Normal external ear exam, Normal orophraynx Ear exam: Normal external inspection. negative: External canal tenderness Nasal Exam: Normal inspection. negative: Discharge, Sinus tenderness Mouth exam: Normal external inspection, Tongue normal Teeth exam: Normal inspection. negative: Dental caries Throat exam: Normal inspection. negative: Tonsillar erythema, Tonsillar exudate - Neck Neck exam: Normal inspection, Full ROM. negative: Tenderness - Respiratory Respiratory exam: Normal lung sounds bilaterally. negative: Respiratory distress - Cardiovascular Cardiovascular Exam: Regular rate, Normal rhythm, Normal heart sounds - GI/Abdominal GI/Abdominal exam: Soft, Normal bowel sounds. negative: Tenderness - Rectal Rectal exam: Deferred - exam: Deferred - Extremities Extremities exam: Normal inspection, Full ROM, Normal capillary refill. negative: Tenderness - Back Back exam: Reports: Normal inspection, Full ROM. Denies: Muscle spasm, Rash noted, Tenderness - Neurological Neurological exam: Alert, CN II-XII intact, Normal gait, Oriented X3 - Psychiatric Psychiatric exam: Normal affect, Normal mood - Skin Skin exam: Dry, Intact, Normal color, Warm Course Vital Signs 01/22/19 21:36 Temperature 98.0 F Pulse Rate [ 87 Left] Respiratory 16 Rate Blood Pressure 152/100 [Left Arm] Pulse Ox 96 Disposition Disposition: Discharge Clinical Impression: Subconjunctival hemorrhage of left eye Disposition: Home, Self-Care Condition: (1) Good Instructions: Subconjunctival Hemorrhage (ED) Additional Instructions: follow up with family doctor. apply ice and warm soaks. return sooner if worse. Forms: Patient Portal Access Quality - Quality Measures Quality Measures: N/A - Blood Pressure Screening Does Patient Have Any of the Following: Active Dx of HTN Blood Pressure Classification: Hypertensive Reading Systolic Measurement: 152 Diastolic Measurement: 100 Screening for High Blood Pressure: Patient Exclusion, Hx of HTN [[id number]]
== END 2019-01-22 22:19 | disposition home or self-care (01) ==
LOC: ER 21:25
DX: H11.32 Conjunctival hemorrhage, left eye (principal); I10 Essential (primary) hypertension
CPT/HCPCS: 99283